=== PATIENT | male | born 1955 | race Caucasian/White ===

== ENCOUNTER 2019-01-31 11:35 | Inpatient (IN) | payer BC, OTHER ==
[2019-01-31] MEDS ORDERED: PIPERACILLIN/TAZOB 2.25 GM 2.25 GM in DEXTROSE 5%-WATER - 50 ML IVPB ONE (12:13)
[2019-01-31] MEDS ORDERED: VANCOMYCIN 1 GM in D5W (PRE-DOCKED) 1,000 MG/250 ML IVPB ONE (12:14)
--- NOTE | 2019-01-31 12:17 | PDOC ---
History of Present Illness - General Chief Complaint: Puncture Wound Stated Complaint: LT FOOT WOUND - History of Present Illness Initial Comments: The pt is a 63M w/ a history of HTN, DM, BLE neuropathy, ESRD on iHD (,,) who presents for evaluation of BLE infection/celluitis/necrosis for approx 1 month. The pt reports approximately 1 month of progressive R hallux and second toe blackening as well a similar area on the lateral aspect of his right foot. The area of most concern is his right second toe. He denies having IV abx for this before. He denies fevers/chills, chest pain, trouble breathing, increasing pain, drainage. He was told by Dr. Ragsdale to present today for IV abx and admission. 01/31/19 12:15 Past History - Past Medical History Allergies/Adverse Reactions: Allergies Allergy/AdvReac Type Severity Reaction Status Date / Time No Known Allergies Allergy Verified 01/31/19 11:43 Home Medications: Ambulatory Orders Aspirin [ASA -] 81 mg PO DAILY 01/31/19 Insulin (Levemir) [Levemir Vial] 20 unit SQ HS 01/31/19 Rosuvastatin Calcium [Crestor] 20 mg PO HS 01/31/19 COPD: No Diabetes: Yes Dialysis: Yes (,,THU) HTN: Yes - Surgical History Abdominal Surgery: (R UPPER ARM GRAFT) - Suicide/Smoking/Psychosocial Hx Smoking History: Never smoked Hx Alcohol Use: No Drug/Substance Use Hx: No Review of Systems - Review of Systems Able to Perform ROS?: Yes Comments:: GENERAL/CONSTITUTIONAL: No fever or chills. No weakness HEAD, EYES, EARS, NOSE AND THROAT: No change in vision. No change in hearing. No sore throat CARDIOVASCULAR: No chest pain or shortness of breath RESPIRATORY: Denies cough, hemoptysis GASTROINTESTINAL: No nausea, vomiting, diarrhea or constipation GENITOURINARY: Makes little urine MUSCULOSKELETAL: No joint or muscle swelling or pain. No neck or back pain NEUROLOGIC: No headache, vertigo, loss of consciousness, or change in strength/ sensation ENDOCRINE: No increased thirst. No abnormal weight change HEMATOLOGIC/LYMPHATIC: No anemia, easy bleeding, or history of blood clots ALLERGIC/IMMUNOLOGIC: No hives or skin allergy 01/31/19 12:15 Is the patient limited Cuban proficient: No *Physical Exam - Vital Signs Last Vital Signs Temp Pulse Resp BP Pulse Ox 97.5 F L 91 H 16 147/64 92 L 01/31/19 11:39 01/31/19 11:39 01/31/19 11:39 01/31/19 11:39 01/31/19 11:39 - Physical Exam Comments: GENERAL: Awake, alert, and oriented to person/place/time, in no acute distress HEAD: No signs of trauma, normocephalic, atraumatic EYES: PERRLA, EOMI, sclera anicteric, conjunctiva clear ENT: Hearing grossly normal, nares patent, oropharynx clear without exudates. Moist mucosa LUNGS: No distress, speaks in full sentences, clear to auscultation bilaterally HEART: Regular rate and rhythm, normal S1 and S2, no murmurs appreciated, peripheral pulses normal and equal bilaterally ABDOMEN: Soft, nontender, normoactive bowel sounds. No guarding, no rebound EXTREMITIES: Normal inspection, Normal range of motion, no edema. No clubbing or cyanosis NEUROLOGICAL: Cranial nerves II through XII grossly intact. Normal speech, ambulating, no focal sensorimotor deficits SKIN: R second toe necrosis, R hallux distal necrosis, left lateral foot distal necrosis. Surrounding erythema next to each area of necrosis w/o streaking 01/31/19 12:16 ED Treatment Course - LABORATORY CBC & Chemistry Diagram: 01/31/19 12:45 01/31/19 12:45 Medical Decision Making - Medical Decision Making The pt is a 63M w/ a history of HTN, DM, BLE neuropathy, ESRD on iHD (T,,) who presents for evaluation of BLE infection/celluitis/necrosis for approx 1 month. ED Course Labs and cultures sent Bernardo and Yohannes for cellulitis CXR ECG B/l foot XR to evaluate for SQ air Plan for admission for IV abx Consult order placed for Dr. Davidson Pt signed out to Dr. Ulrich 01/31/19 13:07 No leukocytosis Mild anemia, no indication for transfusion at this time Lytes unremarkable Elevated Cr, pt w/ known ESRD LFTs mildly elevated ESR wnl CRP elevated -XR pending to screen for osteo 01/31/19 15:20 *DC/Admit/Observation/Transfer Diagnosis at time of Disposition: Necrotic toes, Gangrene, ESRD (end stage renal disease) Cellulitis Qualifiers: Site of cellulitis: extremity Site of cellulitis of extremity: lower extremity Laterality: unspecified laterality Qualified Code(s): L03.119 - Cellulitis of unspecified part of limb - Discharge Dispostion Condition at time of disposition: Stable Decision to Admit order: Yes - Referrals - Patient Instructions - Post Discharge Activity
[2019-01-31] MEDS ORDERED: PIPERACILLIN/TAZOB 2.25 GM 2.25 GM/50 ML BAG IVPB ONE (12:30)
[2019-01-31] MEDS ORDERED: VANCOMYCIN 1 GRAM (PRE-DOCKED) 1,000 MG/250 ML BAG IVPB ONE (12:30)
[2019-01-31 13:13] LABS: BASO % 0.7 % (0-2.0); EOS % 0.1 % (0-4.5); HEMOGLOBIN 11.1 GM/dL (11.7-16.9); LYMPH % 4.7 % (8-40); MCH 26.2 pg (25.7-33.7); MCHC 30.9 g/dl (32.0-35.9); MEAN CELL VOLUME 84.8 fl (80-96); MEAN PLT VOLUME 10.7 fl (7.5-11.1); MONO % 4.8 % (3.8-10.2); NEUT % 89.7 % (42.8-82.8); PLATELET COUNT 240 K/MM3 (134-434); RBC 4.25 M/mm3 (4.00-5.60); WHITE BLOOD COUNT 9.9 K/mm3 (4.0-10.0)
[2019-01-31 13:37] LABS: BILIRUBIN,TOTAL 0.6 mg/dL (0.2-1); BLOOD UREA NITROGEN 71.9 mg/dL (7-18); CALCIUM 9.2 mg/dL (8.5-10.1); TOT PROT 7.5 g/dl (6.4-8.2)
[2019-01-31 13:40] LABS: CREATININE 8.7 mg/dL (0.55-1.3)
--- NOTE | 2019-01-31 14:17 | PDOC ---
Attending Attestation - Resident Resident Name: Jamaal Hinton - ED Attending Attestation I have performed the following: I have examined & evaluated the patient, The case was reviewed & discussed with the resident, I agree w/resident's findings & plan, Exceptions are as noted - HPI HPI: 01/31/19 14:11 Mr. Abel is a 63 yo M who presets to the ER due to toe gangrene The patient has a h/o HTN, DM, BLE neuropathy, ESRD on HD (T,,Sa) who presents for evaluation of BLE infection/celluitis/necrosis for approx 1 month. He has noted a progressive R hallux and second toe blackening as well a similar area on the lateral aspect of his right foot. he was seen by Dr. Ragsdale for this and told to come in for IV abx and admission. 01/31/19 12:15 - Physicial Exam PE: 01/31/19 14:17 GENERAL: Awake, alert, and oriented to person/place/time, in no acute distress HEAD: No signs of trauma EYES: PERRLA, EOMI, sclera anicteric, conjunctiva clear LUNGS: No distress, speaks in full sentences, clear to auscultation bilaterally HEART: Regular rate and rhythm, normal S1 and S2, no murmurs appreciated, peripheral pulses normal and equal bilaterally ABDOMEN: Soft, nontender EXTREMITIES: Normal inspection, Normal range of motion, no edema (please see below) NEUROLOGICAL: Cranial nerves II through XII grossly intact. Normal speech, ambulating, no focal sensorimotor deficits SKIN: R second toe necrosis, R hallux distal necrosis, left lateral foot distal necrosis. Surrounding erythema next to each area of necrosis w/o streaking - Medical Decision Making 01/31/19 14:18 63 yo M h/o ESRD on HD , DM presenting with necrosis of toes will do Labs Xray IV abx Admit 01/31/19 14:19 Laboratory Tests 01/31/19 01/31/19 01/31/19 12:45 12:45 12:45 WBC 9.9 Hgb 11.1 L Hct 36.0 Plt Count 240 Neutrophils % 89.7 H Sodium 135 L Chloride 98 Carbon Dioxide 23 BUN 71.9 H Creatinine 8.7 H* AST 107 H ALT 83 H Alkaline Phosphatase 200 H C-Reactive Protein 7.1 H Will admit to Dr Ragsdale's service Adi 01/31/19 16:04 EKG: NSR rate of 83 bpm, axis nml, intervals nml, no st elevation or depression , st depression v4-v6 clinical impression: gangrene, initial presentation
--- NOTE | 2019-01-31 14:41 | HP ---
Admitting History and Physical - Primary Care Physician PCP: Jonathan Ragsdale - Admission Chief Complaint: necrotic toes History of Present Illness: The patient has a h/o HTN, DM, BLE neuropathy, ESRD on HD (,,) who presents for evaluation of toe/necrosis and foul order for approx 1 month. He has noted a progressive R hallux and second toe blackening as well a similar area on the lateral aspect of his right foot. patent not sure when the black discoloration started and has decreased sensation in the toes and feet. he has no fever no other complaints he was seen by Dr. Ragsdale for this and told to come in for IV abx and admission. in ER he got iv abx History Source: Patient - Past Medical History Cardiovascular: Yes: HTN Renal/: Yes: Other (ESRD on HD) Endocrine: Yes: Diabetes Mellitus - Smoking History Smoking history: Never smoked - Alcohol/Substance Use Hx Alcohol Use: No Home Medications - Allergies Allergies/Adverse Reactions: Allergies Allergy/AdvReac Type Severity Reaction Status Date / Time No Known Allergies Allergy Verified 01/31/19 11:43 - Home Medications Home Medications: Ambulatory Orders Aspirin [ASA -] 81 mg PO DAILY 01/31/19 Insulin (Levemir) [Levemir Vial] 20 unit SQ HS 01/31/19 Rosuvastatin Calcium [Crestor] 20 mg PO HS 01/31/19 Review of Systems - Review of Systems Musculoskeletal: reports: Other (black foul smeeling necrotic toes) Physical Examination Vital Signs: Vital Signs Temperature 97.5 F L 01/31/19 11:39 Pulse Rate 91 H 01/31/19 11:39 Respiratory Rate 16 01/31/19 11:39 Blood Pressure 147/64 01/31/19 11:39 O2 Sat by Pulse Oximetry (%) 92 L 01/31/19 11:39 Constitutional: Yes: Calm Cardiovascular: Yes: Regular Rate and Rhythm, S1, S2 Respiratory: Yes: CTA Bilaterally Gastrointestinal: Yes: Normal Bowel Sounds, Soft Extremities: Yes: Cyanosis (right fifth toe and lateral border black left 2 toe necrotic and black) Neurological: Yes: Alert, Oriented, Other (decrasd sensation in feet) Labs: CBC, BMP 01/31/19 12:45 01/31/19 12:45 Problem List - Problems (1) Necrotic toes Assessment/Plan: vascular ,podiatry and ID consult iv abx Code(s): I96 - GANGRENE, NOT ELSEWHERE CLASSIFIED (2) Diabetes Assessment/Plan: diabetic diet [id number] endocrine sliding scale bgm Code(s): E11.9 - TYPE 2 DIABETES MELLITUS WITHOUT COMPLICATIONS Qualifiers: Diabetes mellitus type: type 2 (3) Hyperlipidemia Assessment/Plan: check lipid panel crestor Code(s): E78.5 - HYPERLIPIDEMIA, UNSPECIFIED
[2019-01-31] MEDS ORDERED: ACETAMINOPHEN 325 MG TABLET (FP) PO PRN (14:52)
--- NOTE | 2019-01-31 15:29 | CONSULT ---
Consult Consult Specialty:: Nephrology Reason for Consultation:: ESRD - History of Present Illness Chief Complaint: bilateral lower ext infection History of Present Illness: Pt is a 63 year old male with pmhx of HTN, DM, neuropathy, and ESRD (TTS) who presents to the ER with bilateral lower ext cellulitis. He has had these symptoms for the last month. He has gangrene of several toes. He is on HD and I was called to evaluate him. He last went to HD on Thursday. He denies shortness of breath or edema. He denies fevers or chills. He follows with Dr Hill. - History Source History Provided By: Patient - Past Medical History Cardio/Vascular: Yes: HTN Renal/: Yes: Renal Failure, Hemodialysis, Other (ESRD on HD) Heme/Onc: Yes: Anemia Endocrine: Yes: Diabetes Mellitus - Alcohol/Substance Use Hx Alcohol Use: No - Smoking History Smoking history: Never smoked Home Medications - Allergies Allergies/Adverse Reactions: Allergies Allergy/AdvReac Type Severity Reaction Status Date / Time No Known Allergies Allergy Verified 01/31/19 11:43 - Home Medications Home Medications: Ambulatory Orders Aspirin [ASA -] 81 mg PO DAILY 01/31/19 Insulin (Levemir) [Levemir Vial] 20 unit SQ HS 01/31/19 Rosuvastatin Calcium [Crestor] 20 mg PO HS 01/31/19 Family Disease History - Family Disease History Family History: Denies Review of Systems - Review of Systems Constitutional: reports: No Symptoms Eyes: reports: No Symptoms HENT: reports: No Symptoms Neck: reports: No Symptoms Cardiovascular: reports: No Symptoms Respiratory: reports: No Symptoms Gastrointestinal: reports: No Symptoms Genitourinary: reports: No Symptoms Musculoskeletal: reports: No Symptoms Integumentary: reports: Change in Color, Erythema, Wound Neurological: reports: No Symptoms Endocrine: reports: No Symptoms Hematology/Lymphatic: reports: No Symptoms Psychiatric: reports: No Symptoms Physical Exam Vital Signs: Vital Signs Temperature 97.5 F L 01/31/19 11:39 Pulse Rate 91 H 01/31/19 11:39 Respiratory Rate 16 01/31/19 11:39 Blood Pressure 147/64 01/31/19 11:39 O2 Sat by Pulse Oximetry (%) 92 L 01/31/19 11:39 Constitutional: Yes: Calm Eyes: Yes: Conjunctiva Clear HENT: Yes: Atraumatic Neck: Yes: Supple Cardiovascular: Yes: S1, S2 Respiratory: Yes: CTA Bilaterally Gastrointestinal: Yes: Normal Bowel Sounds, Soft Renal/: Yes: WNL Extremities: Yes: Other (bilateral lower ext cellulitis, gnagrene several toes left foot) Edema: No Integumentary: Yes: Erythema, Venous Stasis Changes Wound/Incision: Yes: Open to air Neurological: Yes: Oriented Psychiatric: Yes: Oriented Labs: CBC, BMP 01/31/19 12:45 01/31/19 12:45 Imaging - Results Chest X-ray: Report Reviewed Problem List - Problems (1) Cellulitis Code(s): L03.90 - CELLULITIS, UNSPECIFIED Qualifiers: Site of cellulitis: extremity Site of cellulitis of extremity: lower extremity Laterality: unspecified laterality Qualified Code(s): L03.119 - Cellulitis of unspecified part of limb (2) Diabetes Code(s): E11.9 - TYPE 2 DIABETES MELLITUS WITHOUT COMPLICATIONS Qualifiers: Diabetes mellitus type: type 2 (3) ESRD (end stage renal disease) Code(s): N18.6 - END STAGE RENAL DISEASE (4) Gangrene Code(s): I96 - GANGRENE, NOT ELSEWHERE CLASSIFIED (5) Hyperlipidemia Code(s): E78.5 - HYPERLIPIDEMIA, UNSPECIFIED Assessment/Plan Current Medications Generic Name Dose Route Start Last Admin Trade Name Freq PRN Reason Stop Dose Admin Acetaminophen 650 mg 01/31/19 14:52 Tylenol - PO Q6H PRN FEVER Heparin Sodium (Porcine) 5,000 unit 01/31/19 22:00 Heparin - SQ BID [facility] Insulin Aspart 1 vial 01/31/19 16:30 Novolog Vial Sliding Scale - SQ ACHS [facility] Protocol Insulin Detemir 15 units 01/31/19 22:00 Levemir Vial SQ HS [facility] Rosuvastatin Calcium 10 mg 01/31/19 22:00 Crestor - PO HS [facility] Impression 1. ESRD 2. DM 3. HLD 4. toe gangrene 5. anemia Plan - will arrange for HD tomorrow - renal diet - abx per primary team - podiatry and vascular eval
[2019-01-31] MEDS: INSULIN SLIDING SCALE (NOVOLOG) 1 VIAL SQ SCH ×2 (16:53→21:45)
[2019-01-31] MEDS ORDERED: SODIUM CHLORIDE 250 ML IV PRN (17:35)
--- NOTE | 2019-01-31 19:54 | PN ---
Progress Note (short form) - Note Progress Note: ID CONSULT DICTATED GANGRENE, FEET BILAT R/O SEPSIS ESRD AWAIT C/S EMPIRIC VANCOMYCIN/ ZOSYN, ADJUSTED FOR ESRD SURGICAL EVALUATION
[2019-01-31] MEDS: HEPARIN NA (PORCINE) 5,000 UNITS/ML 1ML VIAL SQ SCH (21:42)
[2019-01-31] MEDS: ROSUVASTATIN CA 10 MG TABLET (FP) PO SCH (21:42)
[2019-01-31] MEDS: INSULIN (LEVEMIR) 100 UNITS/ML UNITS SQ SCH (21:42)
[2019-02-01] MEDS ORDERED: DEXTROSE 5%-WATER - 50 ML IVPB ONE ×4 (01:29→23:43)
[2019-02-01] MEDS ORDERED: PIPERACILLIN/TAZOBACTAM 2.25 GM VIAL IVPB ONE ×4 (01:29→23:43)
[2019-02-01] MEDS: PIPERACILLIN/TAZOB 2.25 GM 2.25 GM in DEXTROSE 5%-WATER - 50 ML IVPB SCH ×3 (01:38→18:14)
[2019-02-01] MEDS: INSULIN SLIDING SCALE (NOVOLOG) 1 VIAL SQ SCH ×4 (06:11→21:45)
[2019-02-01 07:56] LABS: BASO % 0.9 % (0-2.0); HEMATOCRIT 33.1 % (35.4-49); HEMOGLOBIN 10.5 GM/dL (11.7-16.9); LYMPH % 6.1 % (8-40); MCH 26.5 pg (25.7-33.7); MCHC 31.6 g/dl (32.0-35.9); MEAN CELL VOLUME 83.7 fl (80-96); MEAN PLT VOLUME 10.1 fl (7.5-11.1); MONO % 5.2 % (3.8-10.2); NEUT % 87.8 % (42.8-82.8); PLATELET COUNT 228 K/MM3 (134-434); RBC 3.96 M/mm3 (4.00-5.60); RDW 19.4 % (11.9-15.9); WHITE BLOOD COUNT 9.4 K/mm3 (4.0-10.0)
[2019-02-01 07:58] LABS: INR 1.67 (0.83-1.09); PROTHROMBIN TIME (PATIENT) 19.8 SEC (9.7-13.0)
[2019-02-01 08:01] LABS: ACTIVATED PTT 31.3 SECONDS (25.2-36.5)
[2019-02-01 08:02] LABS: CHOLESTEROL 109 mg/dL (50-200); HDL CHOLESTEROL 23 mg/dL (40-60); TRIGLYCERIDES 109 mg/dL (0-150)
[2019-02-01 08:13] LABS: ALBUMIN 2.9 g/dl (3.4-5.0); BILIRUBIN,TOTAL 0.7 mg/dL (0.2-1); BLOOD UREA NITROGEN 83.9 mg/dL (7-18); CALCIUM 8.7 mg/dL (8.5-10.1); MAGNESIUM 2.7 mg/dL (1.8-2.4); N-TERMINAL BNP 107516.8 pg/ml (5-125); PHOSPHOROUS 8.6 mg/dL (2.5-4.9); POTASSIUM 4.7 mmol/L (3.5-5.1); TOT PROT 6.5 g/dl (6.4-8.2)
[2019-02-01 08:20] LABS: CREATININE 9.9 mg/dL (0.55-1.3)
--- NOTE | 2019-02-01 08:20 | PN ---
Progress Note, Physician Chief Complaint: AWAKE ALERT TROPONINS ELEVATED DENIES CHEST PAIN OR SOB EKG STAT ORDERED - Current Medication List Current Medications: Active Medications Acetaminophen (Tylenol -) 650 mg PO Q6H PRN PRN Reason: FEVER Heparin Sodium (Porcine) (Heparin -) 5,000 unit SQ BID MAISHA Last Admin: 01/31/19 21:42 Dose: 5,000 unit Sodium Chloride (Normal Saline -) 250 mls @ 3,000 mls/hr IV PRN PRN PRN Reason: Hypotension during Dialysis Stop: 02/01/19 17:35 Piperacillin Sod/Tazobactam (Sod 2.25 gm/ Dextrose) 50 mls @ 100 mls/hr IVPB Q8H-IV MAISHA; Protocol Last Admin: 02/01/19 01:38 Dose: 100 mls/hr Insulin Aspart (Novolog Vial Sliding Scale -) 1 vial SQ ACHS ON LICENSE OF [facility]; Protocol Last Admin: 02/01/19 06:11 Dose: Not Given Insulin Detemir (Levemir Vial) 15 units SQ HS ON LICENSE OF [facility] Last Admin: 01/31/19 21:42 Dose: 15 units Rosuvastatin Calcium (Crestor -) 10 mg PO HS ON LICENSE OF [facility] Last Admin: 01/31/19 21:42 Dose: 10 mg - Objective Vital Signs: Vital Signs Temperature 97.8 F 02/01/19 08:04 Pulse Rate 80 02/01/19 08:04 Respiratory Rate 20 02/01/19 08:04 Blood Pressure 130/69 02/01/19 08:04 O2 Sat by Pulse Oximetry (%) 99 01/31/19 21:00 Constitutional: Yes: Mild Distress Cardiovascular: Yes: Regular Rate and Rhythm Respiratory: Yes: WNL Gastrointestinal: Yes: Abdomen, Obese Genitourinary: Yes: Incontinence Musculoskeletal: Yes: Muscle Weakness Extremities: Yes: Deformity Edema: Yes Integumentary: Yes: Erythema, Pressure Ulcer, Rash, Skin Tear Wound/Incision: Yes: Open to air, Excoriated Neurological: Yes: Pre-Existing Deficit ...Motor Strength: LLE, RLE Labs: CBC, BMP 02/01/19 06:00 INR, PTT INR 1.67 (0.83-1.09) H 02/01/19 06:15 Problem List - Problems (1) Cellulitis Code(s): L03.90 - CELLULITIS, UNSPECIFIED Qualifiers: Site of cellulitis: extremity Site of cellulitis of extremity: lower extremity Laterality: unspecified laterality Qualified Code(s): L03.119 - Cellulitis of unspecified part of limb (2) Diabetes Code(s): E11.9 - TYPE 2 DIABETES MELLITUS WITHOUT COMPLICATIONS Qualifiers: Diabetes mellitus type: type 2 (3) ESRD (end stage renal disease) Code(s): N18.6 - END STAGE RENAL DISEASE (4) Gangrene Code(s): I96 - GANGRENE, NOT ELSEWHERE CLASSIFIED (5) Hyperlipidemia Code(s): E78.5 - HYPERLIPIDEMIA, UNSPECIFIED (6) Necrotic toes Code(s): I96 - GANGRENE, NOT ELSEWHERE CLASSIFIED Assessment/Plan IV ABX PER ID VASC SX AND PODIATRY EVAL MAY NEED AMPUTATION DISCUSSED COMPLIANCE WITH PATIENT PATIENT DOES NOT FOLLOW UP AND DOES NOT FOLLOW ADA/MEDS PSYCHIATRY EVAL
--- NOTE | 2019-02-01 09:22 | CONSULT ---
- Consultation REQUESTING PROVIDER: CONSULT REQUEST: We have been asked to surgically evaluate this patient for ( necrotic toes). PCP:Mojgan Hamilton HISTORY OF PRESENT ILLNESS: 63 y/o M w/ PMHx HTN, IDDM c/b BLE neuropathy, ESRD on HD (T,,) admitted for toe necrosis and foul order for approx 1 month. Pt is a poor historian. Reports he first noted his toes became necrotic approximately 1 month ago. Pt was seen by Dr Ragsdale and sent he was sent in for IV abx and admission. Pt denies h/o claudication/rest pain sxs, prior foot ulcerations, trauma, h/o recent tobacco use (quit smoking in 1978). Denies cp/sob, n/v/d, fever/chills. At baseline pt lives home with sister. Reports he is able to perform all his own ADLs. States prior to last month he ambulated unlimited amounts with no issues, reports walking 3 blocks to HD every session. PMHx: as above PSHx: B/L UE dialysis access (Dr Braden Pagan) Home Medications Medication Instructions Recorded Aspirin [ASA -] 81 mg PO DAILY 01/31/19 Insulin (Levemir) [Levemir Vial] 20 unit SQ HS 01/31/19 Rosuvastatin Calcium [Crestor] 20 mg PO HS 01/31/19 Allergies Allergy/AdvReac Type Severity Reaction Status Date / Time No Known Allergies Allergy Verified 01/31/19 11:43 REVIEW OF SYSTEMS: CONSTITUTIONAL: Absent: fever, chills CARDIOVASCULAR: Absent: chest pain, syncope RESPIRATORY: Absent: cough, shortness of breath GASTROINTESTINAL: Absent: abdominal pain PHYSICAL EXAM: GENERAL: Awake, alert, and fully oriented, in no acute distress. HEAD: Normal with no signs of trauma. LUNGS: Unlabored on RA. LOWER EXTREMITIES: Right foot with dry gangrene of 2nd toe, big toe with necrotic tip and purulent drainage medially, scant erythema of forefoot, trace edema. L lateral foot with approx 3x3cm area of dry gangrene. 5th digit edematous and discolored. Trace erythema of forefoot, trace edema of foot. L heel with 4x4 cm area of dry gangrene over heel, no erythema or drainage. Vascular: 2+ b/l fem, no pop pulses, no dp/pt appreciated Vital Signs Temperature 97.8 F 02/01/19 08:04 Pulse Rate 80 02/01/19 08:04 Respiratory Rate 20 02/01/19 08:04 Blood Pressure 130/69 02/01/19 08:04 O2 Sat by Pulse Oximetry (%) 99 01/31/19 21:00 Lab Results WBC 9.4 K/mm3 (4.0-10.0) 02/01/19 06:15 RBC 3.96 M/mm3 (4.00-5.60) L 02/01/19 06:15 Hgb 10.5 GM/dL (11.7-16.9) L 02/01/19 06:15 Hct 33.1 % (35.4-49) L 02/01/19 06:15 MCV 83.7 fl (80-96) 02/01/19 06:15 MCHC 31.6 g/dl (32.0-35.9) L 02/01/19 06:15 RDW 19.4 % (11.9-15.9) H 02/01/19 06:15 Plt Count 228 K/MM3 (134-434) 02/01/19 06:15 Sodium 137 mmol/L (136-145) 02/01/19 06:00 Potassium 4.7 mmol/L (3.5-5.1) 02/01/19 06:00 Chloride 97 mmol/L (98-107) L 02/01/19 06:00 Carbon Dioxide 22 mmol/L (21-32) 02/01/19 06:00 Anion Gap 18 MMOL/L (8-16) H 02/01/19 06:00 BUN 83.9 mg/dL (7-18) H 02/01/19 06:00 Creatinine 9.9 mg/dL (0.55-1.3) H* 02/01/19 06:00 Random Glucose 141 mg/dL (74-106) H 02/01/19 06:00 Calcium 8.7 mg/dL (8.5-10.1) 02/01/19 06:00 INR 1.67 (0.83-1.09) H 02/01/19 06:15 A/P: 63 y/o M w/ PMHx HTN, IDDM c/b BLE neuropathy, ESRD on HD (T,Th,Sa) admitted for toe necrosis and foul order for approx 1 month. Dry gangrene with + purulent drainage R foot, dry gangrene L foot Pt with likely PAD, however troponins >4. Will need CTA b/l le's once cleared from cardiac perspective. Discussed with pt likelihood of multiple toe amps once circulation has been evaluated due to extensive gangrene/infection, pt agreeable. Abx per primary team/ID Will follow d/w attending Dr Verde
[2019-02-01] MEDS: HEPARIN NA (PORCINE) 5,000 UNITS/ML 1ML VIAL SQ SCH ×2 (09:37→21:40)
--- NOTE | 2019-02-01 11:41 | CONS ---
INFECTIOUS DISEASE CONSULTATION DATE OF CONSULTATION: DATE OF DICTATION: 02/01/2019 HISTORY: The patient is a 63-year-old male who is evaluated for gangrene of the feet bilaterally. The patient reports that he had developed discoloration of his toes approximately 1 month ago. He developed progressively worsening cyanosis and necrosis of toes on the right foot as well as the lateral aspect of the left foot. He presented to his provider who referred him for admission. In the emergency room, he was noted to have dry gangrene of the right 2nd toe as well as part of the right great toe. In addition, he had necrosis involving the lateral aspect of the left foot. Cultures were obtained, and he was empirically treated with vancomycin and Zosyn. Patient complains of some mild discomfort, however, no severe pain. He denies any purulent drainage. No associated fever or chills. He denies any prior history of serious soft tissue infection requiring hospitalization, infected diabetic foot ulcers, or osteomyelitis. He has received his care at other hospitals. No previous [facility] admission. PAST MEDICAL HISTORY: Positive for end-stage renal disease on hemodialysis, diabetes mellitus, hypertension, peripheral neuropathy. PAST SURGICAL HISTORY: Status post AV graft right upper extremity, history of a left upper extremity AV graft, which was complicated by bleeding. ALLERGIES: No known allergies. MEDICATIONS: Include aspirin, Levemir, Crestor. SOCIAL HISTORY: He is retired. He lives in the community with his significant other. He was a former healthcare coordinator. No acute tobacco or alcohol use. SYSTEMS REVIEW: Neurologic: No loss of consciousness, seizure activity, focal weakness. Cardiac: Negative chest pain or palpitations. Respiratory: Negative cough or sputum production. Gastrointestinal: Negative vomiting or diarrhea. Genitourinary: End-stage renal disease on hemodialysis. LABORATORY DATA: White count 9.9, hematocrit 36.0, platelet count 240, creatinine 8.7, total bilirubin 0.6, alkaline phosphatase 200, AST 107, ESR 59, C-reactive protein 7.1. X-rays are pending. PHYSICAL EXAMINATION: General: He is awake and alert. He is not acutely toxic appearing. Vital Signs: Temperature 97.5, blood pressure 147/64, pulse 91 and regular, respirations 16 per minute. HEENT: Sclerae anicteric. Heart: Sounds S1, S2. Lungs: Clear. Abdomen: Soft and nontender. Extremities: There is an AV graft present in the right upper extremity. There is an ulceration present over a previous AV graft in the left upper extremity. No purulent drainage or erythema. Examination of the right foot, there is dry gangrene involving the right 2nd toe as well as the right great toe. There is no purulent drainage. There is erythema extending to the dorsum of the foot. No tenderness elicited. Examination of the left foot, there is necrosis present left 5th toe and lateral aspect of the left foot. There is erythema extending along the lateral aspect of the left foot. No purulent drainage. IMPRESSION: 1. Gangrene feet bilateral. 2. Rule out sepsis secondary to skin source. 3. End-stage renal disease on hemodialysis. 4. Diabetes mellitus. PLAN: Await cultures. Empiric antibiotic coverage with vancomycin and Zosyn adjusted for end-stage renal disease. Surgical evaluation. We will follow. Thank you for the kind referral. LILLIAN DIEGO M.D. [id number]
--- NOTE | 2019-02-01 13:00 | PN ---
Progress Note, Physician History of Present Illness: AWAKE, ALERT C/O BILATERAL FOOT PAIN NO C/O F/C WBC WNL C/S PENDING ELEVATED LFTS NOTED - Current Medication List Current Medications: Active Medications Acetaminophen (Tylenol -) 650 mg PO Q6H PRN PRN Reason: FEVER Heparin Sodium (Porcine) (Heparin -) 5,000 unit SQ BID [facility] Last Admin: 02/01/19 09:37 Dose: 5,000 unit Sodium Chloride (Normal Saline -) 250 mls @ 3,000 mls/hr IV PRN PRN PRN Reason: Hypotension during Dialysis Stop: 02/01/19 17:35 Piperacillin Sod/Tazobactam (Sod 2.25 gm/ Dextrose) 50 mls @ 100 mls/hr IVPB Q8H-IV [facility]; Protocol Last Admin: 02/01/19 09:37 Dose: 100 mls/hr Insulin Aspart (Novolog Vial Sliding Scale -) 1 vial SQ ACHS [facility]; Protocol Last Admin: 02/01/19 06:11 Dose: Not Given Insulin Detemir (Levemir Vial) 15 units SQ HS [facility] Last Admin: 01/31/19 21:42 Dose: 15 units Rosuvastatin Calcium (Crestor -) 10 mg PO HS [facility] Last Admin: 01/31/19 21:42 Dose: 10 mg - Objective Vital Signs: Vital Signs Temperature 98.4 F 02/01/19 11:15 Pulse Rate 93 H 02/01/19 12:20 Respiratory Rate 18 02/01/19 12:20 Blood Pressure 147/100 02/01/19 12:20 O2 Sat by Pulse Oximetry (%) 99 01/31/19 21:00 Constitutional: Yes: No Distress Eyes: Yes: Conjunctiva Clear Cardiovascular: Yes: Regular Rate and Rhythm, S1, S2 Respiratory: Yes: CTA Bilaterally Gastrointestinal: Yes: Normal Bowel Sounds, Soft. No: Tenderness Extremities: Yes: Other (+ DRY GANGRENE R 1/2 TOES, LATERAL L FOOT; CYANOSIS L 5TH TOE) Labs: CBC, BMP 02/01/19 06:15 02/01/19 06:00 INR, PTT INR 1.67 (0.83-1.09) H 02/01/19 06:15 Assessment/Plan GANGRENE, FEET BILATERALLY ESRD ELEVATED LFTS AWAIT C/S SURGICAL FOLLOW UP CONTINUE ZOSYN REDOSE VANCOMYCIN ? GI EVAL RE LFTS
[2019-02-01] MEDS ORDERED: VANCOMYCIN 1 GRAM (PRE-DOCKED) 1,000 MG/250 ML BAG IVPB ONE (13:01)
--- NOTE | 2019-02-01 15:49 | PN ---
Progress Note, Physician History of Present Illness: Pt seen and examined at bedside. He is awake and alert. He is tolerating HD. - Current Medication List Current Medications: Active Medications Acetaminophen (Tylenol -) 650 mg PO Q6H PRN PRN Reason: FEVER Heparin Sodium (Porcine) (Heparin -) 5,000 unit SQ BID [facility] Last Admin: 02/01/19 09:37 Dose: 5,000 unit Sodium Chloride (Normal Saline -) 250 mls @ 3,000 mls/hr IV PRN PRN PRN Reason: Hypotension during Dialysis Stop: 02/01/19 17:35 Piperacillin Sod/Tazobactam (Sod 2.25 gm/ Dextrose) 50 mls @ 100 mls/hr IVPB Q8H-IV [facility]; Protocol Last Admin: 02/01/19 09:37 Dose: 100 mls/hr Insulin Aspart (Novolog Vial Sliding Scale -) 1 vial SQ ACHS [facility]; Protocol Last Admin: 02/01/19 14:24 Dose: Not Given Insulin Detemir (Levemir Vial) 15 units SQ HS [facility] Last Admin: 01/31/19 21:42 Dose: 15 units Rosuvastatin Calcium (Crestor -) 10 mg PO HS [facility] Last Admin: 01/31/19 21:42 Dose: 10 mg - Objective Vital Signs: Vital Signs Temperature 98.4 F 02/01/19 11:15 Pulse Rate 80 02/01/19 14:20 Respiratory Rate 18 02/01/19 14:20 Blood Pressure 120/82 02/01/19 14:20 O2 Sat by Pulse Oximetry (%) 99 02/01/19 09:00 Constitutional: Yes: Calm Eyes: Yes: Conjunctiva Clear HENT: Yes: Atraumatic Neck: Yes: Supple Cardiovascular: Yes: S1, S2 Respiratory: Yes: CTA Bilaterally Gastrointestinal: Yes: Normal Bowel Sounds, Soft Genitourinary: Yes: WNL Musculoskeletal: Yes: WNL Edema: No Wound/Incision: Yes: Open to air Neurological: Yes: Oriented Psychiatric: Yes: Oriented Labs: CBC, BMP 02/01/19 06:15 02/01/19 06:00 INR, PTT INR 1.67 (0.83-1.09) H 02/01/19 06:15 Problem List - Problems (1) Cellulitis Code(s): L03.90 - CELLULITIS, UNSPECIFIED Qualifiers: Site of cellulitis: extremity Site of cellulitis of extremity: lower extremity Laterality: unspecified laterality Qualified Code(s): L03.119 - Cellulitis of unspecified part of limb (2) Diabetes Code(s): E11.9 - TYPE 2 DIABETES MELLITUS WITHOUT COMPLICATIONS Qualifiers: Diabetes mellitus type: type 2 (3) ESRD (end stage renal disease) Code(s): N18.6 - END STAGE RENAL DISEASE (4) Gangrene Code(s): I96 - GANGRENE, NOT ELSEWHERE CLASSIFIED (5) Hyperlipidemia Code(s): E78.5 - HYPERLIPIDEMIA, UNSPECIFIED Assessment/Plan Current Medications Generic Name Dose Route Start Last Admin Trade Name Freq PRN Reason Stop Dose Admin Acetaminophen 650 mg 01/31/19 14:52 Tylenol - PO Q6H PRN FEVER Heparin Sodium (Porcine) 5,000 unit 01/31/19 22:00 02/01/19 09:37 Heparin - SQ 5,000 unit BID [facility] Administration Sodium Chloride 250 mls @ 3,000 mls/hr 01/31/19 17:35 Normal Saline - IV 02/01/19 17:35 PRN PRN Hypotension during Dialysis Piperacillin Sod/Tazobactam 50 mls @ 100 mls/hr 02/01/19 02:00 02/01/19 09:37 Sod 2.25 gm/ Dextrose IVPB 100 mls/hr Q8H-IV [facility] Administration Protocol Insulin Aspart 1 vial 01/31/19 16:30 02/01/19 14:24 Novolog Vial Sliding Scale - SQ Not Given ACHS [facility] Protocol Insulin Detemir 15 units 01/31/19 22:00 01/31/19 21:42 Levemir Vial SQ 15 units HS [facility] Administration Rosuvastatin Calcium 10 mg 01/31/19 22:00 01/31/19 21:42 Crestor - PO 10 mg HS [facility] Administration Impression 1. ESRD 2. DM 3. HLD 4. toe gangrene 5. anemia Plan - HD today, pt is tolerating - podiatry and vascular follow up - cont renal diet - cont wound care - bp is stable
--- NOTE | 2019-02-01 15:51 | EKG ---
Test Reason : Blood Pressure : / mmHG Vent. Rate : 078 BPM Atrial Rate : 078 BPM P-R Int : 180 ms QRS Dur : 108 ms QT Int : 436 ms P-R-T Axes : 079 073 192 degrees QTc Int : 497 ms SINUS RHYTHM WITH OCCASIONAL PREMATURE VENTRICULAR COMPLEXES INFERIOR INFARCT (CITED ON OR BEFORE 31-JAN-2019) ABNORMAL ECG WHEN COMPARED WITH ECG OF 31-JAN-2019 15:39, PREMATURE VENTRICULAR COMPLEXES ARE NOW PRESENT Confirmed by MD ECHO, ZOILA ([id number]) on 02/01/2019 3:51:01 PM Referred By: Gill HECTOR Confirmed By:ZOILA DODGE MD
--- NOTE | 2019-02-01 16:15 | EKG ---
Test Reason : Blood Pressure : / mmHG Vent. Rate : 083 BPM Atrial Rate : 083 BPM P-R Int : 136 ms QRS Dur : 108 ms QT Int : 420 ms P-R-T Axes : 018 066 188 degrees QTc Int : 493 ms NORMAL SINUS RHYTHM POSSIBLE LEFT ATRIAL ENLARGEMENT INFERIOR INFARCT , AGE UNDETERMINED ABNORMAL ECG NO PREVIOUS ECGS AVAILABLE Confirmed by MD ECHO, ZOILA ([id number]) on 02/01/2019 4:15:40 PM Referred By: Confirmed By:ZOILA DODGE MD
[2019-02-01] MEDS ORDERED: PT OWN MED DRAWER 7, Y5N ONE (18:32)
--- NOTE | 2019-02-01 18:36 | CON.PSY ---
Psychiatry Consult Chief Complaint: 63 Ramona old male with ESRD andc other medical conditions seen for Psych eval? competency. Patient gets Dialysis anmd been compl;iant. Patierntv apparantly refused MRI< closed one.. - Previous Psychiatric Treatment Outpatient: None Inpatient: None - Previous Substance Abuse Treatment Outpatient: None Inpatient: None - Current Medications Current Medications: Active Medications Acetaminophen (Tylenol -) 650 mg PO Q6H PRN PRN Reason: FEVER Heparin Sodium (Porcine) (Heparin -) 5,000 unit SQ BID [facility] Last Admin: 02/01/19 09:37 Dose: 5,000 unit Sodium Chloride (Normal Saline -) 250 mls @ 3,000 mls/hr IV PRN PRN PRN Reason: Hypotension during Dialysis Stop: 02/01/19 17:35 Piperacillin Sod/Tazobactam (Sod 2.25 gm/ Dextrose) 50 mls @ 100 mls/hr IVPB Q8H-IV [facility]; Protocol Last Admin: 02/01/19 18:14 Dose: 100 mls/hr Insulin Aspart (Novolog Vial Sliding Scale -) 1 vial SQ ACHS [facility]; Protocol Last Admin: 02/01/19 16:38 Dose: Not Given Insulin Detemir (Levemir Vial) 15 units SQ HS [facility] Last Admin: 01/31/19 21:42 Dose: 15 units Rosuvastatin Calcium (Crestor -) 10 mg PO HS [facility] Last Admin: 01/31/19 21:42 Dose: 10 mg - Allergies Allergies: Allergies Allergy/AdvReac Type Severity Reaction Status Date / Time No Known Allergies Allergy Verified 01/31/19 11:43 - Current Living Status Usual Living Arrangement: Alone - Current Mental Status Evaluation Appearance: Well Groomed Attitude: Cooperative - Affect Affect: Constrictive Appropriateness: Appropriate to Content - Mood Mood: Euthymic - Speech/Language Expressive: Coherent, Perseverating - Psychomotor Activity Psychomotor Activity: Slowed - Thought Process Thought Process: Intact - Thought Content Hallucinations: Absent Delusions: Absent - Self Perception Self Perception: No Impairment - Cognition Attention: Alert Orientation: Time Memory, Short Term: 3/3 Memory, Remote with Promptin/3 - Concentration Serial Sevens Intact: Yes Simple Calculations Intact: Yes - Abstraction Proverb Interpretation: Intact Judgement: Intact - Insight Insight: Intact - Suicidal Ideation Suicidal Ideation: No - Homicidal Ideation Homicidal Ideation: No Assessment/Plan 12) No acute Mental illness. 2) Patient has the Mental; capacity to Make decisions at this time.
--- NOTE | 2019-02-01 20:17 | CONSULT ---
Consult Consult Specialty:: Podiatry Reason for Consultation:: Gangarene b/l feet - History of Present Illness Chief Complaint: Gangarene B/L feet - History Source History Provided By: Patient, Medical Record - Past Medical History Cardio/Vascular: Yes: HTN Renal/: Yes: Renal Failure, Hemodialysis, Other (ESRD on HD) Endocrine: Yes: Diabetes Mellitus - Alcohol/Substance Use Hx Alcohol Use: No - Smoking History Smoking history: Never smoked Have you smoked in the past 12 months: No - Social History Usual Living Arrangement: Alone Home Medications - Allergies Allergies/Adverse Reactions: Allergies Allergy/AdvReac Type Severity Reaction Status Date / Time No Known Allergies Allergy Verified 01/31/19 11:43 - Home Medications Home Medications: Ambulatory Orders Aspirin [ASA -] 81 mg PO DAILY 01/31/19 Insulin (Levemir) [Levemir Vial] 20 unit SQ HS 01/31/19 Rosuvastatin Calcium [Crestor] 20 mg PO HS 01/31/19 Physical Exam Vital Signs: Vital Signs Temperature 98.4 F 02/01/19 11:15 Pulse Rate 88 02/01/19 15:48 Respiratory Rate 18 02/01/19 15:48 Blood Pressure 150/82 02/01/19 15:48 O2 Sat by Pulse Oximetry (%) 99 02/01/19 09:00 Extremities: Yes: Other (+gangarene lateral left foot with schemic blue 5th toe , +gangarene hallux and 2nd toe right, +mal odor left, +dry gangarene right, + pvd) Labs: CBC, BMP 02/01/19 06:15 02/01/19 06:00 Assessment/Plan gangarene pvd DM Read and appreciated vascular note. Awaiting vascular follow up and recommendations. Will debride necrotic tissue and or amputated gangrenous toes once cleared or re-vascularized. HGBA1c, ESR, CRP ordered. Refused MRI according to patient. Betadine dressing to wounds on feet to maintain dry status. Will follow. ID on case.
[2019-02-01] MEDS: ROSUVASTATIN CA 10 MG TABLET (FP) PO SCH (21:40)
[2019-02-01] MEDS: INSULIN (LEVEMIR) 100 UNITS/ML UNITS SQ SCH (21:40)
[2019-02-02] MEDS: PIPERACILLIN/TAZOB 2.25 GM 2.25 GM in DEXTROSE 5%-WATER - 50 ML IVPB SCH ×3 (02:31→17:07)
[2019-02-02] MEDS: INSULIN SLIDING SCALE (NOVOLOG) 1 VIAL SQ SCH ×4 (06:26→22:51)
[2019-02-02] MEDS ORDERED: SODIUM CHLORIDE 250 ML IV PRN (07:30)
--- NOTE | 2019-02-02 08:44 | PN ---
Progress Note, Physician Chief Complaint: AWAKE ALERT AWAITING TOE AMPUTATION SURGERY THURSDAY - Current Medication List Current Medications: Active Medications Acetaminophen (Tylenol -) 650 mg PO Q6H PRN PRN Reason: FEVER Heparin Sodium (Porcine) (Heparin -) 5,000 unit SQ BID [facility] Last Admin: 02/01/19 21:40 Dose: 5,000 unit Sodium Chloride (Normal Saline -) 250 mls @ 3,000 mls/hr IV PRN PRN PRN Reason: Hypotension during Dialysis Stop: 02/01/19 17:35 Piperacillin Sod/Tazobactam (Sod 2.25 gm/ Dextrose) 50 mls @ 100 mls/hr IVPB Q8H-IV [facility]; Protocol Last Admin: 02/02/19 02:31 Dose: 100 mls/hr Insulin Aspart (Novolog Vial Sliding Scale -) 1 vial SQ ACHS [facility]; Protocol Last Admin: 02/02/19 06:26 Dose: Not Given Insulin Detemir (Levemir Vial) 15 units SQ HS [facility] Last Admin: 02/01/19 21:40 Dose: 15 units Rosuvastatin Calcium (Crestor -) 10 mg PO HS [facility] Last Admin: 02/01/19 21:40 Dose: 10 mg - Objective Vital Signs: Vital Signs Temperature 97.4 F L 02/02/19 06:00 Pulse Rate 84 02/02/19 06:00 Respiratory Rate 20 02/02/19 06:00 Blood Pressure 131/73 02/02/19 06:00 O2 Sat by Pulse Oximetry (%) 98 02/01/19 21:00 Constitutional: Yes: Mild Distress Cardiovascular: Yes: Regular Rate and Rhythm Respiratory: Yes: WNL Gastrointestinal: Yes: WNL Genitourinary: Yes: Other Extremities: Yes: Deformity Integumentary: Yes: Pressure Ulcer, Other (GANGRENOUS TOES B/L FEET) Neurological: Yes: Numbness, Paresthesia, Unsteady Gait, Weakness ...Motor Strength: LLE, RLE Psychiatric: Yes: Other Labs: CBC, BMP 02/01/19 06:15 02/01/19 06:00 INR, PTT INR 1.67 (0.83-1.09) H 02/01/19 06:15 Problem List - Problems (1) Cellulitis Code(s): L03.90 - CELLULITIS, UNSPECIFIED Qualifiers: Site of cellulitis: extremity Site of cellulitis of extremity: lower extremity Laterality: unspecified laterality Qualified Code(s): L03.119 - Cellulitis of unspecified part of limb (2) Diabetes Code(s): E11.9 - TYPE 2 DIABETES MELLITUS WITHOUT COMPLICATIONS Qualifiers: Diabetes mellitus type: type 2 (3) ESRD (end stage renal disease) Code(s): N18.6 - END STAGE RENAL DISEASE (4) Gangrene Code(s): I96 - GANGRENE, NOT ELSEWHERE CLASSIFIED (5) Hyperlipidemia Code(s): E78.5 - HYPERLIPIDEMIA, UNSPECIFIED (6) Necrotic toes Code(s): I96 - GANGRENE, NOT ELSEWHERE CLASSIFIED Assessment/Plan MEDICALLY CLEARED FOR AMPUTATION OF TOES FROM NECROTIC TOES HD PER RENAL DM CONTROL D/W PATIENT PSYCH MARIE COTTO
[2019-02-02] MEDS ORDERED: PT OWN MED DRAWER 7, Y5N ONE (10:16)
[2019-02-02] MEDS ORDERED: PIPERACILLIN/TAZOBACTAM 2.25 GM VIAL IVPB ONE ×2 (10:16→17:03)
[2019-02-02] MEDS ORDERED: DEXTROSE 5%-WATER - 50 ML IVPB ONE ×2 (10:17→17:03)
[2019-02-02] MEDS: HEPARIN NA (PORCINE) 5,000 UNITS/ML 1ML VIAL SQ SCH ×2 (10:23→22:51)
[2019-02-02] MEDS: SERTRALINE HCL 25 MG TABLET (FP) PO SCH (10:24)
--- NOTE | 2019-02-02 10:58 | PN ---
Progress Note, Physician History of Present Illness: AWAKE, ALERT NO C/O FOOT PAIN NO C/O F/C WBC WNL C/S PENDING ELEVATED LFTS NOTED - Current Medication List Current Medications: Active Medications Acetaminophen (Tylenol -) 650 mg PO Q6H PRN PRN Reason: FEVER Heparin Sodium (Porcine) (Heparin -) 5,000 unit SQ BID [facility] Last Admin: 02/02/19 10:23 Dose: 5,000 unit Sodium Chloride (Normal Saline -) 250 mls @ 3,000 mls/hr IV PRN PRN PRN Reason: Hypotension during Dialysis Stop: 02/01/19 17:35 Piperacillin Sod/Tazobactam (Sod 2.25 gm/ Dextrose) 50 mls @ 100 mls/hr IVPB Q8H-IV [facility]; Protocol Last Admin: 02/02/19 10:23 Dose: 100 mls/hr Insulin Aspart (Novolog Vial Sliding Scale -) 1 vial SQ ACHS [facility]; Protocol Last Admin: 02/02/19 06:26 Dose: Not Given Insulin Detemir (Levemir Vial) 15 units SQ HS [facility] Last Admin: 02/01/19 21:40 Dose: 15 units Rosuvastatin Calcium (Crestor -) 10 mg PO HS [facility] Last Admin: 02/01/19 21:40 Dose: 10 mg Sertraline HCl (Zoloft -) 25 mg PO DAILY [facility] Last Admin: 02/02/19 10:24 Dose: Not Given - Objective Vital Signs: Vital Signs Temperature 97.4 F L 02/02/19 06:00 Pulse Rate 84 02/02/19 06:00 Respiratory Rate 20 02/02/19 06:00 Blood Pressure 131/73 02/02/19 06:00 O2 Sat by Pulse Oximetry (%) 98 02/01/19 21:00 Constitutional: Yes: No Distress Cardiovascular: Yes: Regular Rate and Rhythm, S1, S2 Respiratory: Yes: CTA Bilaterally Gastrointestinal: Yes: Normal Bowel Sounds, Soft. No: Tenderness Extremities: Yes: Other (DRY GANGRENE R 1/2 TOES; ERYTHEMA RESOLVED; + NECROTIC ULCER LATERAL L FOOT, DECREASED ERYTHEMA) Labs: CBC, BMP 02/01/19 06:15 02/01/19 06:00 INR, PTT INR 1.67 (0.83-1.09) H 02/01/19 06:15 Assessment/Plan GANGRENE, FEET BILATERALLY ESRD ELEVATED LFTS AWAIT C/S SURGICAL FOLLOW UP CONTINUE ZOSYN VANCOMYCIN THERAPUTIC ? GI EVAL RE LFTS
--- NOTE | 2019-02-02 12:56 | PN ---
Progress Note (short form) - Note Progress Note: FUV b/l feet. +gangarene b/l feet toes 1&2 right and lateral foot left and dusky 5th toe, [id number]=3.3 gangarene pvd dm Awaiting vascular work up will debride once cleared from vascular. Medicine has cleared patient. Will follow. continue betadine dressings. Endocrine consult Dr. Botello.
--- NOTE | 2019-02-02 13:12 | PN ---
Progress Note, Physician Chief Complaint: Pt seen and examined at bedside. He is awake and alert. He denies shortness of breath. - Current Medication List Current Medications: Active Medications Acetaminophen (Tylenol -) 650 mg PO Q6H PRN PRN Reason: FEVER Heparin Sodium (Porcine) (Heparin -) 5,000 unit SQ BID [facility] Last Admin: 02/02/19 10:23 Dose: 5,000 unit Sodium Chloride (Normal Saline -) 250 mls @ 3,000 mls/hr IV PRN PRN PRN Reason: Hypotension during Dialysis Stop: 02/01/19 17:35 Piperacillin Sod/Tazobactam (Sod 2.25 gm/ Dextrose) 50 mls @ 100 mls/hr IVPB Q8H-IV [facility]; Protocol Last Admin: 02/02/19 10:23 Dose: 100 mls/hr Insulin Aspart (Novolog Vial Sliding Scale -) 1 vial SQ ACHS [facility]; Protocol Last Admin: 02/02/19 13:00 Dose: 4 units Insulin Detemir (Levemir Vial) 15 units SQ HS [facility] Last Admin: 02/01/19 21:40 Dose: 15 units Rosuvastatin Calcium (Crestor -) 10 mg PO HS [facility] Last Admin: 02/01/19 21:40 Dose: 10 mg Sertraline HCl (Zoloft -) 25 mg PO DAILY [facility] Last Admin: 02/02/19 10:24 Dose: Not Given - Objective Vital Signs: Vital Signs Temperature 97.4 F L 02/02/19 06:00 Pulse Rate 84 02/02/19 06:00 Respiratory Rate 20 02/02/19 06:00 Blood Pressure 131/73 02/02/19 06:00 O2 Sat by Pulse Oximetry (%) 98 02/01/19 21:00 Constitutional: Yes: Calm Eyes: Yes: Conjunctiva Clear HENT: Yes: Atraumatic Neck: Yes: Supple Cardiovascular: Yes: S1, S2 Respiratory: Yes: CTA Bilaterally Gastrointestinal: Yes: Soft Genitourinary: Yes: WNL Musculoskeletal: Yes: WNL Edema: No Wound/Incision: Yes: Dressing Dry and Intact Neurological: Yes: Oriented Labs: CBC, BMP 02/01/19 06:15 02/01/19 06:00 INR, PTT INR 1.67 (0.83-1.09) H 02/01/19 06:15 Problem List - Problems (1) Cellulitis Code(s): L03.90 - CELLULITIS, UNSPECIFIED Qualifiers: Site of cellulitis: extremity Site of cellulitis of extremity: lower extremity Laterality: unspecified laterality Qualified Code(s): L03.119 - Cellulitis of unspecified part of limb (2) Diabetes Code(s): E11.9 - TYPE 2 DIABETES MELLITUS WITHOUT COMPLICATIONS Qualifiers: Diabetes mellitus type: type 2 (3) ESRD (end stage renal disease) Code(s): N18.6 - END STAGE RENAL DISEASE (4) Gangrene Code(s): I96 - GANGRENE, NOT ELSEWHERE CLASSIFIED (5) Hyperlipidemia Code(s): E78.5 - HYPERLIPIDEMIA, UNSPECIFIED Assessment/Plan Current Medications Generic Name Dose Route Start Last Admin Trade Name Freq PRN Reason Stop Dose Admin Acetaminophen 650 mg 01/31/19 14:52 Tylenol - PO Q6H PRN FEVER Heparin Sodium (Porcine) 5,000 unit 01/31/19 22:00 02/02/19 10:23 Heparin - SQ 5,000 unit BID [facility] Administration Sodium Chloride 250 mls @ 3,000 mls/hr 01/31/19 17:35 Normal Saline - IV 02/01/19 17:35 PRN PRN Hypotension during Dialysis Piperacillin Sod/Tazobactam 50 mls @ 100 mls/hr 02/01/19 02:00 02/02/19 10:23 Sod 2.25 gm/ Dextrose IVPB 100 mls/hr Q8H-IV [facility] Administration Protocol Insulin Aspart 1 vial 01/31/19 16:30 02/02/19 13:00 Novolog Vial Sliding Scale - SQ 4 units ACHS [facility] Administration Protocol Insulin Detemir 15 units 01/31/19 22:00 02/01/19 21:40 Levemir Vial SQ 15 units HS [facility] Administration Rosuvastatin Calcium 10 mg 01/31/19 22:00 02/01/19 21:40 Crestor - PO 10 mg HS [facility] Administration Sertraline HCl 25 mg 02/02/19 10:00 02/02/19 10:24 Zoloft - PO Not Given DAILY [facility] Impression 1. ESRD 2. DM 3. HLD 4. toe gangrene 5. anemia Plan - will arrange for HD tomorrow - check labs with HD - check hg - renal diet - cont wound care - possible or on Huseyin
--- NOTE | 2019-02-02 19:06 | PN ---
Progress Note (short form) - Note Progress Note: VAscular Surgery Pt seen and examined GAngrene of right 1st and 2nd toes. GAngrene of left 5th toe and heel. CTA ordrered for am. Will probably need angiogram prior to podiatry intervention Brayan Verde DO
[2019-02-02] MEDS: ROSUVASTATIN CA 10 MG TABLET (FP) PO SCH (22:51)
[2019-02-02] MEDS: INSULIN (LEVEMIR) 100 UNITS/ML UNITS SQ SCH (22:52)
[2019-02-03] MEDS ORDERED: DEXTROSE 5%-WATER - 50 ML IVPB ONE ×3 (01:49→18:24)
[2019-02-03] MEDS ORDERED: PIPERACILLIN/TAZOBACTAM 2.25 GM VIAL IVPB ONE ×3 (01:49→18:23)
[2019-02-03] MEDS: PIPERACILLIN/TAZOB 2.25 GM 2.25 GM in DEXTROSE 5%-WATER - 50 ML IVPB SCH ×3 (02:00→17:33)
[2019-02-03] MEDS: INSULIN SLIDING SCALE (NOVOLOG) 1 VIAL SQ SCH ×4 (06:16→22:27)
[2019-02-03] MEDS ORDERED: EPOETIN ALFA 3,000 UNIT/1 ML ML IVPUSH ONE (09:00)
[2019-02-03] MEDS: HEPARIN NA (PORCINE) 5,000 UNITS/ML 1ML VIAL SQ SCH ×2 (10:10→22:27)
[2019-02-03] MEDS: SERTRALINE HCL 25 MG TABLET (FP) PO SCH (10:10)
--- NOTE | 2019-02-03 11:36 | EKG ---
Test Reason : Blood Pressure : / mmHG Vent. Rate : 086 BPM Atrial Rate : 086 BPM P-R Int : 136 ms QRS Dur : 110 ms QT Int : 420 ms P-R-T Axes : 019 054 172 degrees QTc Int : 502 ms NORMAL SINUS RHYTHM POSSIBLE LEFT ATRIAL ENLARGEMENT INFERIOR INFARCT (CITED ON OR BEFORE 31-JAN-2019) PROLONGED QT ABNORMAL ECG WHEN COMPARED WITH ECG OF 01-FEB-2019 10:05, PREMATURE VENTRICULAR COMPLEXES ARE NO LONGER PRESENT Confirmed by ROBBY BROWN MD ([id number]) on 02/03/2019 11:36:01 AM Referred By: BISHNU ONTIVEROS Confirmed By:ROBBY BROWN MD
[2019-02-03 11:40] LABS: BASO % 0.8 % (0-2.0); EOS % 0.3 % (0-4.5); HEMATOCRIT 31.4 % (35.4-49); HEMOGLOBIN 9.9 GM/dL (11.7-16.9); LYMPH % 4.5 % (8-40); MCH 25.9 pg (25.7-33.7); MCHC 31.4 g/dl (32.0-35.9); MEAN CELL VOLUME 82.4 fl (80-96); MEAN PLT VOLUME 10.2 fl (7.5-11.1); MONO % 6.9 % (3.8-10.2); NEUT % 87.5 % (42.8-82.8); PLATELET COUNT 199 K/MM3 (134-434); RDW 18.6 % (11.9-15.9); WHITE BLOOD COUNT 8.1 K/mm3 (4.0-10.0)
[2019-02-03 12:20] LABS: ALBUMIN 2.6 g/dl (3.4-5.0); ALK PHOS 249 U/L (45-117); ANION GAP 18 MMOL/L (8-16); BILIRUBIN,TOTAL 0.7 mg/dL (0.2-1); BLOOD UREA NITROGEN 68.7 mg/dL (7-18); CALCIUM 8.4 mg/dL (8.5-10.1); CHLORIDE 97 mmol/L (98-107); CO2 22 mmol/L (21-32); GLUCOSE,RANDOM 181 mg/dL (74-106); SGOT/AST 156 U/L (15-37); SGPT/ALT 418 U/L (13-61); SODIUM 137 mmol/L (136-145); TOT PROT 6.1 g/dl (6.4-8.2)
[2019-02-03 13:34] LABS: CREATININE 8.5 mg/dL (0.55-1.3)
--- NOTE | 2019-02-03 15:24 | PN ---
Progress Note (short form) - Note Progress Note: CTA done will review images with attending, Dr Verde. Possible intervention for Wednesday 02/07 (angio/plasty/stent) Patient will need Cardiology clearance, please obtain.
[2019-02-03] MEDS ORDERED: INSULIN (LEVEMIR) 100 UNITS/ML UNITS SQ SCH (15:29)
--- NOTE | 2019-02-03 15:31 | PN ---
Progress Note, Physician Chief Complaint: patient seen and examined during HD awake alert no pain foul smell from toes - Current Medication List Current Medications: Active Medications Acetaminophen (Tylenol -) 650 mg PO Q6H PRN PRN Reason: FEVER Heparin Sodium (Porcine) (Heparin -) 5,000 unit SQ BID [facility] Last Admin: 02/03/19 10:10 Dose: 5,000 unit Piperacillin Sod/Tazobactam (Sod 2.25 gm/ Dextrose) 50 mls @ 100 mls/hr IVPB Q8H-IV [facility]; Protocol Last Admin: 02/03/19 10:10 Dose: 100 mls/hr Insulin Aspart (Novolog Vial Sliding Scale -) 1 vial SQ ACHS [facility]; Protocol Last Admin: 02/03/19 06:16 Dose: Not Given Insulin Detemir (Levemir Vial) 15 units SQ HS [facility] Last Admin: 02/02/19 22:52 Dose: 15 units Rosuvastatin Calcium (Crestor -) 10 mg PO HS [facility] Last Admin: 02/02/19 22:51 Dose: 10 mg Sertraline HCl (Zoloft -) 25 mg PO DAILY [facility] Last Admin: 02/03/19 10:10 Dose: 25 mg - Objective Vital Signs: Vital Signs Temperature 97.8 F 02/03/19 10:45 Pulse Rate 79 02/03/19 14:48 Respiratory Rate 18 02/03/19 14:48 Blood Pressure 143/86 02/03/19 14:48 O2 Sat by Pulse Oximetry (%) 96 02/02/19 21:00 Constitutional: Yes: Calm Cardiovascular: Yes: Regular Rate and Rhythm, S1, S2 Respiratory: Yes: CTA Bilaterally Gastrointestinal: Yes: Normal Bowel Sounds, Soft Extremities: Yes: Other (gangreneous toe 1/2 in right foot and left foot heel and lateral border and cyanotic 5 toes foul smell) Labs: CBC, BMP 02/03/19 10:50 02/03/19 10:50 INR, PTT INR 1.67 (0.83-1.09) H 02/01/19 06:15 Problem List - Problems (1) Necrotic toes Assessment/Plan: vascular ,podiatry and ID consult iv abx cta done today to get angioplasty /stent on thursday cardiology clearance Code(s): I96 - GANGRENE, NOT ELSEWHERE CLASSIFIED (2) Diabetes Assessment/Plan: diabetic diet hgba1c 9.3 - uncontrolled endocrine sliding scale bgm levemir dose increased from 15-20 Code(s): E11.9 - TYPE 2 DIABETES MELLITUS WITHOUT COMPLICATIONS Qualifiers: Diabetes mellitus type: type 2 (3) Hyperlipidemia Assessment/Plan: check lipid panel crestor Code(s): E78.5 - HYPERLIPIDEMIA, UNSPECIFIED (4) Elevated LFTs Assessment/Plan: stop statin and tylenol liver sono hepatits panel gi eval Code(s): R94.5 - ABNORMAL RESULTS OF LIVER FUNCTION STUDIES (5) Elevated troponin Assessment/Plan: trend troponin cardiology consult echo Code(s): R74.8 - ABNORMAL LEVELS OF OTHER SERUM ENZYMES
--- NOTE | 2019-02-03 15:55 | PN ---
Progress Note, Physician History of Present Illness: Pt seen and examined at bedside. He is awake and alert. He is tolerating HD. - Current Medication List Current Medications: Active Medications Heparin Sodium (Porcine) (Heparin -) 5,000 unit SQ BID [facility] Last Admin: 02/03/19 10:10 Dose: 5,000 unit Piperacillin Sod/Tazobactam (Sod 2.25 gm/ Dextrose) 50 mls @ 100 mls/hr IVPB Q8H-IV MAISHA; Protocol Last Admin: 02/03/19 10:10 Dose: 100 mls/hr Insulin Aspart (Novolog Vial Sliding Scale -) 1 vial SQ ACHS MAISHA; Protocol Last Admin: 02/03/19 06:16 Dose: Not Given Insulin Detemir (Levemir Vial) 20 units SQ HS MAISHA Sertraline HCl (Zoloft -) 25 mg PO DAILY [facility] Last Admin: 02/03/19 10:10 Dose: 25 mg - Objective Vital Signs: Vital Signs Temperature 97.8 F 02/03/19 10:45 Pulse Rate 79 02/03/19 14:48 Respiratory Rate 18 02/03/19 14:48 Blood Pressure 143/86 02/03/19 14:48 O2 Sat by Pulse Oximetry (%) 96 02/02/19 21:00 Constitutional: Yes: Calm Eyes: Yes: Conjunctiva Clear HENT: Yes: Atraumatic Cardiovascular: Yes: S1, S2 Respiratory: Yes: CTA Bilaterally Gastrointestinal: Yes: Soft Genitourinary: Yes: WNL Musculoskeletal: Yes: WNL Edema: No Wound/Incision: Yes: Dressing Dry and Intact Neurological: Yes: Oriented Psychiatric: Yes: Oriented Labs: CBC, BMP 02/03/19 10:50 02/03/19 10:50 INR, PTT INR 1.67 (0.83-1.09) H 02/01/19 06:15 Problem List - Problems (1) Cellulitis Code(s): L03.90 - CELLULITIS, UNSPECIFIED Qualifiers: Site of cellulitis: extremity Site of cellulitis of extremity: lower extremity Laterality: unspecified laterality Qualified Code(s): L03.119 - Cellulitis of unspecified part of limb (2) Diabetes Code(s): E11.9 - TYPE 2 DIABETES MELLITUS WITHOUT COMPLICATIONS Qualifiers: Diabetes mellitus type: type 2 (3) ESRD (end stage renal disease) Code(s): N18.6 - END STAGE RENAL DISEASE (4) Gangrene Code(s): I96 - GANGRENE, NOT ELSEWHERE CLASSIFIED (5) Hyperlipidemia Code(s): E78.5 - HYPERLIPIDEMIA, UNSPECIFIED Assessment/Plan Current Medications Generic Name Dose Route Start Last Admin Trade Name Freq PRN Reason Stop Dose Admin Heparin Sodium (Porcine) 5,000 unit 01/31/19 22:00 02/03/19 10:10 Heparin - SQ 5,000 unit BID MAISHA Administration Piperacillin Sod/Tazobactam 50 mls @ 100 mls/hr 02/01/19 02:00 02/03/19 10:10 Sod 2.25 gm/ Dextrose IVPB 100 mls/hr Q8H-IV MAISHA Administration Protocol Insulin Aspart 1 vial 01/31/19 16:30 02/03/19 06:16 Novolog Vial Sliding Scale - SQ Not Given ACHS MAISHA Protocol Insulin Detemir 20 units 02/03/19 15:29 Levemir Vial SQ HS MAISHA Sertraline HCl 25 mg 02/02/19 10:00 02/03/19 10:10 Zoloft - PO 25 mg DAILY MAISHA Administration Impression 1. ESRD 2. DM 3. HLD 4. toe gangrene 5. anemia Plan - HD today - follow up cta and vascular - renal diet - cont wound care
--- NOTE | 2019-02-03 16:01 | PN ---
Progress Note (short form) - Note Progress Note: FUV b/l feet. +gangarene b/l feet toes 1&2 right and lateral foot left and dusky 5th toe, gangarene pvd dm CTA done. Awaiting vascular work up will debride once cleared from vascular. Medicine has cleared patient. Will follow. continue betadine dressings.
--- NOTE | 2019-02-03 16:58 | EKG ---
Test Reason : Blood Pressure : / mmHG Vent. Rate : 082 BPM Atrial Rate : 082 BPM P-R Int : 142 ms QRS Dur : 112 ms QT Int : 446 ms P-R-T Axes : 022 054 195 degrees QTc Int : 521 ms NORMAL SINUS RHYTHM POSSIBLE LEFT ATRIAL ENLARGEMENT POSSIBLE INFERIOR INFARCT (CITED ON OR BEFORE 31-JAN-2019) PROLONGED QT ABNORMAL ECG WHEN COMPARED WITH ECG OF 03-FEB-2019 08:37, NO SIGNIFICANT CHANGE WAS FOUND Confirmed by ROBBY BROWN MD ([id number]) on 02/03/2019 4:58:14 PM Referred By: LILIA HECTOR Confirmed By:ROBBY BROWN MD
--- NOTE | 2019-02-03 19:09 | CON.CARD ---
Consult Consult Specialty:: Cardiology Referred by:: Dr. Hamilton Reason for Consultation:: Preop cardiac risk assessment of vascular intervention - History of Present Illness Chief Complaint: Foot pain History of Present Illness: 63 year-old man with a PMHx of HTN, DM-II, HLD, ESRD on HD admitted 01/31/19 with foot pain and foul order with evidence of LE ischemia and toe/necrosis/ gangrene for one month. The patient noted foot pain and discoloration one month ago. He was seen by Dr. Ragsdale and referred for in-patient care and IV abx. He was seen by Renal, ID, psych, podiatry. Vascular consult pending. The patient denies history of CAD, OR or CHF. He has no symptoms of angina or CHF. But his exercise tolerance is limited due to foot pain. ECGs show persistent inferolateral ST-T abnormalities, suggestive of myocardial ischemia. Troponin is elevated (4.07). - History Source History Provided By: Patient, Medical Record Limitations to Obtaining History: No Limitations - Past Medical History Cardio/Vascular: Yes: HTN Renal/: Yes: Renal Failure, Hemodialysis, Other (ESRD on HD) Endocrine: Yes: Diabetes Mellitus - Alcohol/Substance Use Hx Alcohol Use: No - Smoking History Smoking history: Never smoked Have you smoked in the past 12 months: No - Social History Usual Living Arrangement: Alone Home Medications - Allergies Allergies/Adverse Reactions: Allergies Allergy/AdvReac Type Severity Reaction Status Date / Time No Known Allergies Allergy Verified 01/31/19 11:43 - Home Medications Home Medications: Ambulatory Orders Aspirin [ASA -] 81 mg PO DAILY 01/31/19 Insulin (Levemir) [Levemir Vial] 20 unit SQ HS 01/31/19 Rosuvastatin Calcium [Crestor] 20 mg PO HS 01/31/19 Review of Systems - Review of Systems Constitutional: reports: No Symptoms Eyes: reports: No Symptoms HENT: reports: No Symptoms Neck: reports: No Symptoms Cardiovascular: reports: No Symptoms Respiratory: reports: No Symptoms Gastrointestinal: reports: No Symptoms Genitourinary: reports: No Symptoms Breasts: reports: No Symptoms Reported Musculoskeletal: reports: Extremity Pain Integumentary: reports: Change in Color, Lesions Neurological: reports: No Symptoms Endocrine: reports: No Symptoms Hematology/Lymphatic: reports: No Symptoms Vital Signs: Vital Signs Temperature 97.8 F 02/03/19 10:45 Pulse Rate 79 02/03/19 14:48 Respiratory Rate 18 02/03/19 14:48 Blood Pressure 143/86 02/03/19 14:48 O2 Sat by Pulse Oximetry (%) 96 02/03/19 09:00 General: Well developed. Chronic ill. No acute distress. Head: Normocephalic. Atraumatic, Eyes: PERRLA, EOMI. Sclerae anicteric. Conjunctivae clear. Neck: Supple. No JVD. No bruits. Heart: Normal S1, S2: Regular rhythm and rate. I-II/ PONCHO.. No gallop or rub. Lungs: Symmetrical air entry. Clear to auscultation. No crackle. No wheezing or rhonchi. Abdomen: Soft. Bowel sound positive. Non tender. No masses. Extremities: Bilateral foot dressed. No edema. Neuro: Intact, no focal findings. AAO X3. - Other Data Labs, Other Data: CBC, BMP 02/03/19 10:50 02/03/19 10:50 INR, PTT INR 1.67 (0.83-1.09) H 02/01/19 06:15 Imaging - Results EKG: Image Reviewed (ECGs show persistent inferolateral ST-T abnormalities, suggestive of myocardial ischemia.) Assessment/Plan 63 year-old man with a PMHx of HTN, DM-II, HLD, ESRD on HD admitted 01/31/19 with foot pain and foul order with evidence of LE ischemia and toe/necrosis/ gangrene for one month. He was seen by Renal, ID, psych, podiatry. Vascular consult pending. ECGs show persistent inferolateral ST-T abnormalities, suggestive of myocardial ischemia. Troponin is elevated (4.07). Preoperative cardiac risk assessment: The patient has multiple risk factors of CAD with ECG evidence of ischemia and elevated troponin. He might have silent OR. Would observe the patient closely Obtain echocardiogram to evaluate wall motion and LV systolic function. Restart aspirin 81 mg daily and rusovastatin 20 mg daily. Add low dose metoprolol 25 mg BID for better HR and BP control. We will follow the patient with you!
[2019-02-03 20:01] LABS: N-TERMINAL BNP > 35000.0 pg/ml (5-125)
[2019-02-04] MEDS ORDERED: PIPERACILLIN/TAZOBACTAM 2.25 GM VIAL IVPB ONE ×4 (00:58→16:56)
[2019-02-04] MEDS ORDERED: DEXTROSE 5%-WATER - 50 ML IVPB ONE ×4 (00:58→16:56)
[2019-02-04] MEDS: PIPERACILLIN/TAZOB 2.25 GM 2.25 GM in DEXTROSE 5%-WATER - 50 ML IVPB SCH ×3 (01:11→17:16)
--- NOTE | 2019-02-04 01:18 | CONSULT ---
Consult Consult Specialty:: ENDOCRINE Referred by:: DR.STEPANIAN VAZQUEZ Reason for Consultation:: UNCONTROLLED DM/ESRD - History of Present Illness Chief Complaint: FOOT INFECTION AND HIGH SUGARS History of Present Illness: 63 Y MALE pmh,dm2,HTN, DM, BLE neuropathy, ESRD on HD (T,,) who presents for evaluation of BLE infection/celluitis/necrosis He has had,R hallux and second toe gangrenous appearance, as well a similar area on the lateral aspect of his right foot. presented for surgical and medical intervention.he has elevated blood sugars since the infection started. - Past Medical History Cardio/Vascular: Yes: HTN Renal/: Yes: Renal Failure, Hemodialysis, Other (ESRD on HD) Endocrine: Yes: Diabetes Mellitus - Alcohol/Substance Use Hx Alcohol Use: No - Smoking History Smoking history: Never smoked Have you smoked in the past 12 months: No - Social History Usual Living Arrangement: Alone Home Medications - Allergies Allergies/Adverse Reactions: Allergies Allergy/AdvReac Type Severity Reaction Status Date / Time No Known Allergies Allergy Verified 01/31/19 11:43 - Home Medications Home Medications: Ambulatory Orders Aspirin [ASA -] 81 mg PO DAILY 01/31/19 Insulin (Levemir) [Levemir Vial] 20 unit SQ HS 01/31/19 Rosuvastatin Calcium [Crestor] 20 mg PO HS 01/31/19 Review of Systems - Review of Systems Constitutional: reports: Loss of Appetite, Weakness Eyes: reports: Blurred Vision, Recent Change in Vision HENT: reports: No Symptoms Neck: reports: No Symptoms Cardiovascular: reports: No Symptoms Respiratory: reports: Exercise Intolerance, SOB on Exertion Gastrointestinal: reports: Bloating, Constipation Breasts: reports: No Symptoms Reported Musculoskeletal: reports: Extremity Pain, Muscle Cramps, Muscle Weakness Endocrine: reports: Unexplained Weight Loss Physical Exam Vital Signs: Vital Signs Temperature 98.2 F 02/03/19 19:04 Pulse Rate 84 02/03/19 19:04 Respiratory Rate 20 02/03/19 19:04 Blood Pressure 135/73 02/03/19 19:04 O2 Sat by Pulse Oximetry (%) 97 02/03/19 21:00 Constitutional: Yes: Calm Eyes: Yes: EOM Intact HENT: Yes: Normocephalic Neck: Yes: Trachea Midline Cardiovascular: Yes: Regular Rate and Rhythm Respiratory: Yes: CTA Bilaterally Gastrointestinal: Yes: Normal Bowel Sounds ...Rectal Exam: Yes: Deferred Musculoskeletal: Yes: Muscle Pain, Muscle Weakness Extremities: Yes: Delayed Capillary Refill, Erythema Edema: Yes Edema: LLE: Trace, RLE: Trace Peripheral Pulses WNL: No Wound/Incision: Yes: Draining Labs: CBC, BMP 02/03/19 10:50 02/03/19 10:50 Problem List - Problems (1) Controlled diabetes mellitus with diabetic peripheral angiopathy without gangrene, without long-term current use of insulin Code(s): E11.51 - TYPE 2 DIABETES W DIABETIC PERIPHERAL ANGIOPATH W/O GANGRENE (2) Cellulitis Code(s): L03.90 - CELLULITIS, UNSPECIFIED Qualifiers: Site of cellulitis: extremity Site of cellulitis of extremity: lower extremity Laterality: unspecified laterality Qualified Code(s): L03.119 - Cellulitis of unspecified part of limb (3) Diabetes Code(s): E11.9 - TYPE 2 DIABETES MELLITUS WITHOUT COMPLICATIONS Qualifiers: Diabetes mellitus type: type 2 (4) ESRD (end stage renal disease) Code(s): N18.6 - END STAGE RENAL DISEASE (5) Elevated LFTs Code(s): R94.5 - ABNORMAL RESULTS OF LIVER FUNCTION STUDIES (6) Elevated troponin Code(s): R74.8 - ABNORMAL LEVELS OF OTHER SERUM ENZYMES (7) Gangrene Code(s): I96 - GANGRENE, NOT ELSEWHERE CLASSIFIED (8) Hyperlipidemia Code(s): E78.5 - HYPERLIPIDEMIA, UNSPECIFIED Assessment/Plan Current Active Problems Cellulitis (Acute) Diabetes (Acute) ESRD (end stage renal disease) (Acute) Elevated LFTs (Acute) Elevated troponin (Acute) Gangrene (Acute) Hyperlipidemia (Acute) Necrotic toes (Acute) Abnormal Lab Results 02/03/19 02/03/19 10:50 10:50 RBC 3.80 L Hgb 9.9 L Hct 31.4 L MCHC 31.4 L RDW 18.6 H Neutrophils % 87.5 H Lymphocytes % 4.5 L D Chloride 97 L Anion Gap 18 H BUN 68.7 H Creatinine 8.5 H* Random Glucose 181 H Calcium 8.4 L AST 156 H ALT 418 H Alkaline Phosphatase 249 H Troponin I 1.44 H* B-Natriuretic Peptide > 87548.0 H Total Protein 6.1 L Albumin 2.6 L Laboratory Results - last 24 hr 02/03/19 02/03/19 02/03/19 06:12 10:50 10:50 WBC 8.1 RBC 3.80 L Hgb 9.9 L Hct 31.4 L MCV 82.4 MCH 25.9 MCHC 31.4 L RDW 18.6 H Plt Count 199 MPV 10.2 Absolute Neuts (auto) 7.1 Neutrophils % 87.5 H Lymphocytes % 4.5 L D Monocytes % 6.9 Eosinophils % 0.3 D Basophils % 0.8 Nucleated RBC % 0 Sodium 137 Potassium 4.0 Chloride 97 L Carbon Dioxide 22 Anion Gap 18 H BUN 68.7 H Creatinine 8.5 H* Est GFR (CKD-EPI)AfAm 6.95 Est GFR (CKD-EPI)NonAf 6.00 POC Glucometer 150 Random Glucose 181 H Calcium 8.4 L Total Bilirubin 0.7 AST 156 H ALT 418 H Alkaline Phosphatase 249 H Creatine Kinase 26 Troponin I 1.44 H* B-Natriuretic Peptide > 24200.0 H Total Protein 6.1 L Albumin 2.6 L 02/03/19 02/03/19 16:58 22:25 WBC RBC Hgb Hct MCV MCH MCHC RDW Plt Count MPV Absolute Neuts (auto) Neutrophils % Lymphocytes % Monocytes % Eosinophils % Basophils % Nucleated RBC % Sodium Potassium Chloride Carbon Dioxide Anion Gap BUN Creatinine Est GFR (CKD-EPI)AfAm Est GFR (CKD-EPI)NonAf POC Glucometer 210 329 Random Glucose Calcium Total Bilirubin AST ALT Alkaline Phosphatase Creatine Kinase Troponin I B-Natriuretic Peptide Total Protein Albumin plan: bgm qid novolog scale levemir 20 units am levemir 10 units hs ck hba1c
[2019-02-04] MEDS: INSULIN SLIDING SCALE (NOVOLOG) 1 VIAL SQ SCH ×4 (06:46→21:07)
[2019-02-04] MEDS ORDERED: INSULIN (LEVEMIR) 100 UNITS/ML UNITS SQ SCH (07:00)
--- NOTE | 2019-02-04 08:02 | PN ---
Progress Note (short form) - Note Progress Note: FUV b/l feet. +gangarene b/l feet toes 1&2 right and lateral foot left and dusky 5th toe, gangarene pvd dm CTA done. Awaiting vascular recommendations. Dr. Blackman to follow over weekend. continue betadine dressings.
--- NOTE | 2019-02-04 08:18 | CON.GI ---
Consult Consult Specialty:: GI Referred by:: Dr Mojgan Hamilton Reason for Consultation:: Elevated LFTs - History of Present Illness History of Present Illness: Patient is a 63 y/o male with past medical history of HT, DM, BL lower extremity neuropathy, and ESRD on HD. Consult was placed for elevated LFTs. On admission patient was noted with elevated LFTs which peaked on 02/01 with AST 1361, ALT 418, and Alk Phos 345. Repeat labs from 02/03 have shown downtrend. Abdominal US shows cholelithiasis without evidence of cholecystitis and fatty infiltration of the liver. Patient denies chronic ETOH or drug use. He says that he was taking Crestor 20mg. States having non-bloody diarrhea for 3 days, without night awakening, fevers. Denies nausea, vomiting, abdominal pain. Denies rectal bleeding, blood in stool, melena. - History Source History Provided By: Patient Limitations to Obtaining History: No Limitations - Past Medical History Cardio/Vascular: Yes: HTN Renal/: Yes: Renal Failure, Hemodialysis, Other (ESRD on HD) Endocrine: Yes: Diabetes Mellitus - Alcohol/Substance Use Hx Alcohol Use: No - Smoking History Smoking history: Never smoked Have you smoked in the past 12 months: No - Social History Usual Living Arrangement: Alone ADL: Independent History of Recent Travel: No Home Medications - Allergies Allergies/Adverse Reactions: Allergies Allergy/AdvReac Type Severity Reaction Status Date / Time No Known Allergies Allergy Verified 01/31/19 11:43 - Home Medications Home Medications: Ambulatory Orders Aspirin [ASA -] 81 mg PO DAILY 01/31/19 Insulin (Levemir) [Levemir Vial] 20 unit SQ HS 01/31/19 Rosuvastatin Calcium [Crestor] 20 mg PO HS 01/31/19 Review of Systems - Review of Systems Constitutional: reports: No Symptoms Eyes: reports: No Symptoms HENT: reports: No Symptoms Neck: reports: No Symptoms Cardiovascular: reports: No Symptoms Respiratory: reports: No Symptoms Gastrointestinal: reports: Diarrhea Genitourinary: reports: No Symptoms Breasts: reports: No Symptoms Reported Musculoskeletal: reports: No Symptoms Integumentary: reports: No Symptoms Neurological: reports: No Symptoms Endocrine: reports: No Symptoms Hematology/Lymphatic: reports: No Symptoms Psychiatric: reports: No Symptoms Physical Exam-GI Vital Signs: Vital Signs Temperature 98.2 F 02/03/19 19:04 Pulse Rate 84 02/03/19 19:04 Respiratory Rate 20 02/03/19 19:04 Blood Pressure 135/73 02/03/19 19:04 O2 Sat by Pulse Oximetry (%) 97 02/03/19 21:00 Constitutional: Yes: No Distress, Calm Eyes: Yes: Conjunctiva Clear HENT: Yes: Atraumatic Cardiovascular: Yes: Regular Rate and Rhythm Respiratory: Yes: Regular, CTA Bilaterally Gastrointestinal Inspection: Yes: WNL. No: Ascites, Distention, Hernia, Scars, Other ...Auscultate: Yes: Normoactive Bowel Sounds. No: Hyperactive Bowel Sounds, Hypoactive Bowel Sounds, No Bowel Sounds, Other ...Palpate: Yes: Soft. No: Firm/Rigid, Guarding, Hepatomegaly, Mass, Pulsatile Mass, Splenomegaly, Tenderness, Tenderness, Epigastium, Tenderness, Rebound, Other ...Percussion: Yes: Tympanitic. No: Dullness, Fluid Wave, Other Neurological: Yes: Alert, Oriented Psychiatric: Yes: Alert, Oriented Labs: CBC, BMP 02/03/19 10:50 02/03/19 10:50 INR, PTT INR 1.67 (0.83-1.09) H 02/01/19 06:15 Home Medication List Medication Instructions Recorded Confirmed Type Aspirin [ASA -] 81 mg PO DAILY 01/31/19 01/31/19 History Insulin (Levemir) [Levemir Vial] 20 unit SQ HS 01/31/19 01/31/19 History Rosuvastatin Calcium [Crestor] 20 mg PO HS 01/31/19 01/31/19 History Active Medications Generic Name Dose Route Start Last Admin Trade Name Freq PRN Reason Stop Dose Admin Heparin Sodium (Porcine) 5,000 unit 01/31/19 22:00 02/03/19 22:27 Heparin - SQ 5,000 unit BID MAISHA Administration Piperacillin Sod/Tazobactam 50 mls @ 100 mls/hr 02/01/19 02:00 02/04/19 01:11 Sod 2.25 gm/ Dextrose IVPB 100 mls/hr Q8H-IV MAISHA Administration Protocol Insulin Aspart 1 vial 01/31/19 16:30 02/04/19 06:46 Novolog Vial Sliding Scale - SQ 2 units ACHS MAISHA Administration Protocol Insulin Detemir 10 units 02/04/19 22:00 Levemir Vial SQ HS MAISHA Insulin Detemir 20 units 02/04/19 07:00 02/04/19 06:46 Levemir Vial SQ 20 units AM MAISHA Administration Sertraline HCl 25 mg 02/02/19 10:00 02/03/19 10:10 Zoloft - PO 25 mg DAILY MAISHA Administration Problem List - Problems (1) Elevated LFTs Assessment/Plan: >secondary to chronic use of Crestor >monitor LFTs, beginning to show downtrend >discontinue crestor, can start Zetia 10mg daily and if cholesterol poorly controlled can add Colestid 1g BID >US results reviewed >will need outpatient follow up for chronic liver work-up Code(s): R94.5 - ABNORMAL RESULTS OF LIVER FUNCTION STUDIES
--- NOTE | 2019-02-04 08:34 | PN ---
Progress Note (short form) - Note Progress Note: CTA w/ LE runoff completed. Await official read before establishing a plan. Vascular Surgery to cont following
--- NOTE | 2019-02-04 11:45 | EKG ---
Test Reason : Blood Pressure : / mmHG Vent. Rate : 086 BPM Atrial Rate : 086 BPM P-R Int : 146 ms QRS Dur : 116 ms QT Int : 426 ms P-R-T Axes : 031 076 194 degrees QTc Int : 509 ms SINUS RHYTHM WITH OCCASIONAL PREMATURE VENTRICULAR COMPLEXES POSSIBLE LEFT ATRIAL ENLARGEMENT INFERIOR INFARCT (CITED ON OR BEFORE 31-JAN-2019) PROLONGED QT ABNORMAL ECG WHEN COMPARED WITH ECG OF 03-FEB-2019 15:46, PREMATURE VENTRICULAR COMPLEXES ARE NOW PRESENT Confirmed by ROBBY BROWN MD ([id number]) on 02/04/2019 11:45:12 AM Referred By: Confirmed By:ROBBY BROWN MD
[2019-02-04] MEDS: HEPARIN NA (PORCINE) 5,000 UNITS/ML 1ML VIAL SQ SCH ×2 (11:49→21:06)
[2019-02-04] MEDS: SERTRALINE HCL 25 MG TABLET (FP) PO SCH ×2 (11:50→11:53)
--- NOTE | 2019-02-04 12:50 | PN ---
Progress Note, Physician History of Present Illness: AWAKE, ALERT NO C/O FOOT PAIN NO C/O F/C WBC WNL ELEVATED LFTS IMPROVED - Current Medication List Current Medications: Active Medications Heparin Sodium (Porcine) (Heparin -) 5,000 unit SQ BID MAISHA Last Admin: 02/04/19 11:49 Dose: 5,000 unit Piperacillin Sod/Tazobactam (Sod 2.25 gm/ Dextrose) 50 mls @ 100 mls/hr IVPB Q8H-IV MAISHA; Protocol Last Admin: 02/04/19 11:50 Dose: 100 mls/hr Insulin Aspart (Novolog Vial Sliding Scale -) 1 vial SQ ACHS MAISHA; Protocol Last Admin: 02/04/19 06:46 Dose: 2 units Insulin Detemir (Levemir Vial) 10 units SQ HS MAISHA Insulin Detemir (Levemir Vial) 20 units SQ AM MAISHA Last Admin: 02/04/19 06:46 Dose: 20 units Sertraline HCl (Zoloft -) 25 mg PO DAILY MAISHA Last Admin: 02/04/19 11:53 Dose: Not Given - Objective Vital Signs: Vital Signs Temperature 98.2 F 02/03/19 19:04 Pulse Rate 84 02/03/19 19:04 Respiratory Rate 20 02/03/19 19:04 Blood Pressure 135/73 02/03/19 19:04 O2 Sat by Pulse Oximetry (%) 97 02/03/19 21:00 Constitutional: Yes: No Distress Eyes: Yes: Conjunctiva Clear Cardiovascular: Yes: Regular Rate and Rhythm, S1, S2 Respiratory: Yes: CTA Bilaterally Gastrointestinal: Yes: Normal Bowel Sounds, Soft. No: Tenderness Extremities: Yes: Other (+ DRY GANGRENE R 1/2 TOES, ERYTHEMA RESOLVED; + NECROTIC ULCER L LATERAL FOOT) Labs: CBC, BMP 02/03/19 10:50 02/03/19 10:50 INR, PTT INR 1.67 (0.83-1.09) H 02/01/19 06:15 Assessment/Plan GANGRENE, FEET BILATERALLY ESRD ELEVATED LFTS IMPROVED SURGICAL FOLLOW UP CONTINUE MYAH
[2019-02-04] MEDS ORDERED: INSULIN (NOVOLOG) ASPART 100 UNITS/ML 10ML VIAL ONE (13:29)
--- NOTE | 2019-02-04 14:26 | PN ---
Progress Note, Physician Chief Complaint: seen and examined had CTA stop statin LFT trending down troponin trending down History of Present Illness: awake alert no distress - Current Medication List Current Medications: Active Medications Heparin Sodium (Porcine) (Heparin -) 5,000 unit SQ BID [facility] Last Admin: 02/04/19 11:49 Dose: 5,000 unit Piperacillin Sod/Tazobactam (Sod 2.25 gm/ Dextrose) 50 mls @ 100 mls/hr IVPB Q8H-IV MAISHA; Protocol Last Admin: 02/04/19 11:50 Dose: 100 mls/hr Insulin Aspart (Novolog Vial Sliding Scale -) 1 vial SQ ACHS [facility]; Protocol Last Admin: 02/04/19 13:36 Dose: 2 units Insulin Detemir (Levemir Vial) 10 units SQ HS MAISHA Insulin Detemir (Levemir Vial) 20 units SQ AM MAISHA Last Admin: 02/04/19 06:46 Dose: 20 units Sertraline HCl (Zoloft -) 25 mg PO DAILY [facility] Last Admin: 02/04/19 11:53 Dose: Not Given - Objective Vital Signs: Vital Signs Temperature 98.2 F 02/03/19 19:04 Pulse Rate 84 02/03/19 19:04 Respiratory Rate 20 02/03/19 19:04 Blood Pressure 135/73 02/03/19 19:04 O2 Sat by Pulse Oximetry (%) 97 02/03/19 21:00 Constitutional: Yes: Calm Cardiovascular: Yes: Regular Rate and Rhythm, S1, S2 Respiratory: Yes: CTA Bilaterally Gastrointestinal: Yes: Normal Bowel Sounds, Soft Extremities: Yes: Other (dry gangrene toes foul smell) Labs: CBC, BMP 02/03/19 10:50 02/03/19 10:50 INR, PTT INR 1.67 (0.83-1.09) H 02/01/19 06:15 Problem List - Problems (1) Necrotic toes Assessment/Plan: vascular ,podiatry and ID consult iv abx cta done Code(s): I96 - GANGRENE, NOT ELSEWHERE CLASSIFIED (2) Diabetes Assessment/Plan: diabetic diet hgba1c 9.3 - uncontrolled endocrine sliding scale bgm levemir dose increased from 15-20 to 30 units Code(s): E11.9 - TYPE 2 DIABETES MELLITUS WITHOUT COMPLICATIONS Qualifiers: Diabetes mellitus type: type 2 (3) Hyperlipidemia Assessment/Plan: stop statin as lft increased will start taisha jung [facility] consult Code(s): E78.5 - HYPERLIPIDEMIA, UNSPECIFIED (4) Elevated LFTs Assessment/Plan: trending down since statin was stopped Code(s): R94.5 - ABNORMAL RESULTS OF LIVER FUNCTION STUDIES (5) Elevated troponin Assessment/Plan: trend troponin - downwards cardiology consult noted echo Code(s): R74.8 - ABNORMAL LEVELS OF OTHER SERUM ENZYMES
--- NOTE | 2019-02-04 14:44 | ECHO ---
Name: THO TORRES Exam:Adult Echocardiogram Study Date: 02/04/2019 10:03 AM Age: 63 yrs Reason For Study: EF Height: 73 in Weight: 194 lb BSA: 2.1 m2 MMode/2D Measurements & Calculations IVSd: 1.0 cm Ao root diam: 3.3 cm LVIDd: 5.7 cm LA dimension: 4.4 cm LVIDs: 5.0 cm LVPWd: 1.1 cm LVPWs: 1.4 cm EDV(Teich): 159.6 ml ESV(Teich): 116.3 ml LVOT diam: 2.3 cm Doppler Measurements & Calculations Ao V2 max: 137.8 cm/sec LV V1 max P.9 mmHg Ao max P.6 mmHg LV V1 mean P.84 mmHg Ao V2 mean: 95.2 cm/sec LV V1 max: 68.6 cm/sec Ao mean P.4 mmHg LV V1 mean: 41.1 cm/sec Ao V2 VTI: 22.5 cm LV V1 VTI: 10.0 cm ANNIE(I,D): 1.8 cm2 ANNIE(V,D): 2.1 cm2 MR max den: 333.9 cm/sec SV(LVOT): 41.2 ml MR max P.6 mmHg TR max den: 364.0 cm/sec PA V2 max: 65.2 cm/sec TR max P.0 mmHg PA max P.7 mmHg RVSP(TR): 63.0 mmHg Med Peak E' Den: 3.8 cm/sec RAP systole: 10.0 mmHg Lat Peak E' Den: 8.8 cm/sec Procedure A complete two-dimensional transthoracic echocardiogram was performed (2D, M-mode, Doppler and color flow Doppler). Left Ventricle The left ventricle is moderately dilated. Ejection Fraction = 15-20%. Left ventricular systolic funct ion is severely reduced. There is severe global hypokinesis of the left ventricle. Right Ventricle The right ventricle is normal in size and function. Atria The left atrium is mildly dilated. The right atrium is mildly dilated. Mitral Valve There is trace mitral regurgitation. Tricuspid Valve There is moderate tricuspid regurgitation. There is severe pulmonary hypertension. Aortic Valve No hemodynamically significant valvular aortic stenosis. No aortic regurgitation is present. Pulmonic Valve There is no pulmonic valvular regurgitation. Great Vessels The aortic root is normal size. Pericardium/Pleura There is no pericardial effusion. Interpretation Summary The left ventricle is moderately dilated. Left ventricular systolic function is severely reduced. There is severe global hypokinesis of the left ventricle. The right ventricle is normal in size and function. The left atrium is mildly dilated. The right atrium is mildly dilated. There is trace mitral regurgitation. There is moderate tricuspid regurgitation. There is severe pulmonary hypertension. MD Jarett Ramos 02/04/2019 02:43 PM
[2019-02-04] MEDS: ASPIRIN 81 MG CHEWABLE TABLETS PO SCH (16:47)
[2019-02-04] MEDS ORDERED: SODIUM CHLORIDE 250 ML IV PRN (17:04)
--- NOTE | 2019-02-04 17:04 | PN ---
Progress Note, Physician History of Present Illness: Pt seen and examined at bedside. He is awake and alert. He denies shortness of breath. - Current Medication List Current Medications: Active Medications Aspirin (Asa -) 81 mg PO DAILY [facility] [place] Last Admin: 02/04/19 16:47 Dose: 81 mg Heparin Sodium (Porcine) (Heparin -) 5,000 unit SQ BID [facility] [place] Last Admin: 02/04/19 11:49 Dose: 5,000 unit Piperacillin Sod/Tazobactam (Sod 2.25 gm/ Dextrose) 50 mls @ 100 mls/hr IVPB Q8H-IV [facility]; Protocol Last Admin: 02/04/19 11:50 Dose: 100 mls/hr Insulin Aspart (Novolog Vial Sliding Scale -) 1 vial SQ ACHS [facility] [place]; Protocol Last Admin: 02/04/19 13:36 Dose: 2 units Insulin Detemir (Levemir Vial) 10 units SQ HS [facility] Insulin Detemir (Levemir Vial) 20 units SQ AM [facility] [place] Last Admin: 02/04/19 06:46 Dose: 20 units Metoprolol Succinate (Toprol Xl -) 25 mg PO BID [facility] [place] Sertraline HCl (Zoloft -) 25 mg PO DAILY [facility] [place] Last Admin: 02/04/19 11:53 Dose: Not Given - Objective Vital Signs: Vital Signs Temperature 98 F 02/04/19 14:21 Pulse Rate 89 02/04/19 14:21 Respiratory Rate 20 02/04/19 14:21 Blood Pressure 130/77 02/04/19 14:21 O2 Sat by Pulse Oximetry (%) 96 02/04/19 09:00 Constitutional: Yes: Calm Eyes: Yes: Conjunctiva Clear HENT: Yes: Atraumatic Neck: Yes: Supple Cardiovascular: Yes: S1, S2 Respiratory: Yes: CTA Bilaterally Gastrointestinal: Yes: Soft Genitourinary: Yes: WNL Musculoskeletal: Yes: WNL Edema: No Wound/Incision: Yes: Dressing Dry and Intact Neurological: Yes: Oriented Labs: CBC, BMP 02/03/19 10:50 02/03/19 10:50 INR, PTT INR 1.67 (0.83-1.09) H 02/01/19 06:15 Problem List - Problems (1) Cellulitis Code(s): L03.90 - CELLULITIS, UNSPECIFIED Qualifiers: Site of cellulitis: extremity Site of cellulitis of extremity: lower extremity Laterality: unspecified laterality Qualified Code(s): L03.119 - Cellulitis of unspecified part of limb (2) Diabetes Code(s): E11.9 - TYPE 2 DIABETES MELLITUS WITHOUT COMPLICATIONS Qualifiers: Diabetes mellitus type: type 2 (3) ESRD (end stage renal disease) Code(s): N18.6 - END STAGE RENAL DISEASE (4) Gangrene Code(s): I96 - GANGRENE, NOT ELSEWHERE CLASSIFIED (5) Hyperlipidemia Code(s): E78.5 - HYPERLIPIDEMIA, UNSPECIFIED Assessment/Plan Current Medications Generic Name Dose Route Start Last Admin Trade Name Freq PRN Reason Stop Dose Admin Aspirin 81 mg 02/04/19 14:30 02/04/19 16:47 Asa - PO 81 mg DAILY [facility] Administration Heparin Sodium (Porcine) 5,000 unit 01/31/19 22:00 02/04/19 11:49 Heparin - SQ 5,000 unit BID [facility] Administration Piperacillin Sod/Tazobactam 50 mls @ 100 mls/hr 02/01/19 02:00 02/04/19 11:50 Sod 2.25 gm/ Dextrose IVPB 100 mls/hr Q8H-IV [facility] Administration Protocol Insulin Aspart 1 vial 01/31/19 16:30 02/04/19 13:36 Novolog Vial Sliding Scale - SQ 2 units ACHS [facility] Administration Protocol Insulin Detemir 10 units 02/04/19 22:00 Levemir Vial SQ HS [facility] Insulin Detemir 20 units 02/04/19 07:00 02/04/19 06:46 Levemir Vial SQ 20 units AM [facility] Administration Metoprolol Succinate 25 mg 02/04/19 22:00 Toprol Xl - PO BID [facility] Sertraline HCl 25 mg 02/02/19 10:00 02/04/19 11:53 Zoloft - PO Not Given DAILY [facility] Impression 1. ESRD 2. DM 3. HLD 4. toe gangrene 5. anemia Plan - HD in am - vascular follow up - cont renal diet - volume status is stable - epogen for anemia - cont wound care
--- NOTE | 2019-02-04 17:37 | PN ---
Progress Note, Physician Chief Complaint: The patient appears comfortable at the time of exam. She has no SOB at rest, chest pain or palpitation. History of Present Illness: 63 year-old man with a PMHx of HTN, DM-II, HLD, ESRD on HD admitted 01/31/19 with foot pain and foul order with evidence of LE ischemia and toe/necrosis/ gangrene for one month. The patient noted foot pain and discoloration one month ago. He was seen by Dr. Ragsdale and referred for in-patient care and IV abx. He was seen by Renal, ID, psych, podiatry and vascular. LE angio planned. ECGs show persistent inferolateral ST-T abnormalities, suggestive of myocardial ischemia. Troponin is elevated (4.07). Echocardiogram 02/04/19: Moderate LV dilatation with severe global LV systolic dysfunction. LVEF = 15-20%. Normal RV. Mild LA and RA dilatation. Minimal MR. Moderate TR. - Current Medication List Current Medications: Active Medications Aspirin (Asa -) 81 mg PO DAILY [facility] Last Admin: 02/04/19 16:47 Dose: 81 mg Epoetin Donato (Epogen -) 4,000 unit IVPUSH ONCE ONE Stop: 02/05/19 17:05 Heparin Sodium (Porcine) (Heparin -) 5,000 unit SQ BID [facility] Last Admin: 02/04/19 11:49 Dose: 5,000 unit Piperacillin Sod/Tazobactam (Sod 2.25 gm/ Dextrose) 50 mls @ 100 mls/hr IVPB Q8H-IV [facility]; Protocol Last Admin: 02/04/19 17:16 Dose: 100 mls/hr Sodium Chloride (Normal Saline -) 250 mls @ 3,000 mls/hr IV PRN PRN PRN Reason: Hypotension during Dialysis Stop: 02/05/19 17:04 Insulin Aspart (Novolog Vial Sliding Scale -) 1 vial SQ ACHS [facility]; Protocol Last Admin: 02/04/19 17:14 Dose: Not Given Insulin Detemir (Levemir Vial) 10 units SQ HS [facility] Insulin Detemir (Levemir Vial) 20 units SQ AM [facility] Last Admin: 02/04/19 06:46 Dose: 20 units Metoprolol Succinate (Toprol Xl -) 25 mg PO BID [facility] Sertraline HCl (Zoloft -) 25 mg PO DAILY [facility] Last Admin: 02/04/19 11:53 Dose: Not Given - Objective Vital Signs: Vital Signs Temperature 98 F 02/04/19 14:21 Pulse Rate 89 02/04/19 14:21 Respiratory Rate 20 02/04/19 14:21 Blood Pressure 130/77 02/04/19 14:21 O2 Sat by Pulse Oximetry (%) 96 02/04/19 09:00 General: Well developed. Chronic ill. No acute distress. Head: Normocephalic. Atraumatic, Eyes: PERRLA, EOMI. Sclerae anicteric. Conjunctivae clear. Neck: Supple. No JVD. No bruits. Heart: Normal S1, S2: Regular rhythm and rate. I-II/ PONCHO.. No gallop or rub. Lungs: Symmetrical air entry. Clear to auscultation. No crackle. No wheezing or rhonchi. Abdomen: Soft. Bowel sound positive. Non tender. No masses. Extremities: Bilateral foot dressed. No edema. Neuro: Intact, no focal findings. AAO X3. Labs: CBC, BMP 02/03/19 10:50 02/03/19 10:50 INR, PTT INR 1.67 (0.83-1.09) H 02/01/19 06:15 Assessment/Plan 63 year-old man with a PMHx of HTN, DM-II, HLD, ESRD on HD admitted 01/31/19 with foot pain and foul order with evidence of LE ischemia and toe/necrosis/ gangrene for one month. The patient noted foot pain and discoloration one month ago. He was seen by Dr. Ragsdale and referred for in-patient care and IV abx. He was seen by Renal, ID, psych, podiatry and vascular. LE angio planned. ECGs show persistent inferolateral ST-T abnormalities, suggestive of myocardial ischemia. Troponin is elevated (4.07). Echocardiogram 02/04/19: Moderate LV dilatation with severe global LV systolic dysfunction. LVEF = 15-20%. Normal RV. Mild LA and RA dilatation. Minimal MR. Moderate TR. 1) Preoperative cardiac risk assessment: The patient has multiple risk factors of CAD with ECG evidence of ischemia and elevated troponin. He is likely having silent RI. He has severe LV systolic dysfunction, possible secondary to ischemic cardiomyopathy. He is at high risk cardiac complications (Revised Cardiac Risk Index (RCRI) 4 predictors = >11%) for any surgical intervention at this time. Would observe the patient closely 2) Systolic CHF, likely chronic, possible secondary to ischemic cardiomyopathy. Ischemic work up, cardiac cath should be performed in near future. Continue metoprolol 25 mg BID Start diovan 80 mg daily. We will follow the patient with you!
--- NOTE | 2019-02-04 18:10 | PN ---
Progress Note, Physician Chief Complaint: continues labile bs - Current Medication List Current Medications: Active Medications Aspirin (Asa -) 81 mg PO DAILY [facility] Last Admin: 02/04/19 16:47 Dose: 81 mg Epoetin Donato (Epogen -) 4,000 unit IVPUSH ONCE ONE Stop: 02/05/19 17:05 Heparin Sodium (Porcine) (Heparin -) 5,000 unit SQ BID [facility] Last Admin: 02/04/19 11:49 Dose: 5,000 unit Piperacillin Sod/Tazobactam (Sod 2.25 gm/ Dextrose) 50 mls @ 100 mls/hr IVPB Q8H-IV [facility]; Protocol Last Admin: 02/04/19 17:16 Dose: 100 mls/hr Sodium Chloride (Normal Saline -) 250 mls @ 3,000 mls/hr IV PRN PRN PRN Reason: Hypotension during Dialysis Stop: 02/05/19 17:04 Insulin Aspart (Novolog Vial Sliding Scale -) 1 vial SQ ACHS [facility]; Protocol Last Admin: 02/04/19 17:14 Dose: Not Given Insulin Detemir (Levemir Vial) 10 units SQ HS [facility] Insulin Detemir (Levemir Vial) 25 units SQ AM [facility] Metoprolol Succinate (Toprol Xl -) 25 mg PO BID [facility] Sertraline HCl (Zoloft -) 25 mg PO DAILY [facility] Last Admin: 02/04/19 11:53 Dose: Not Given - Objective Vital Signs: Vital Signs Temperature 97.7 F 02/04/19 17:45 Pulse Rate 87 02/04/19 17:45 Respiratory Rate 20 02/04/19 17:45 Blood Pressure 148/72 02/04/19 17:45 O2 Sat by Pulse Oximetry (%) 96 02/04/19 09:00 Constitutional: Yes: Calm Eyes: Yes: EOM Intact HENT: Yes: Normocephalic Neck: Yes: Trachea Midline Cardiovascular: Yes: Regular Rate and Rhythm Respiratory: Yes: CTA Bilaterally Gastrointestinal: Yes: Normal Bowel Sounds ...Rectal Exam: Yes: Deferred Breast(s): Yes: WNL Extremities: Yes: Cool Edema: Yes Edema: LLE: 1+, RLE: 1+ Integumentary: Yes: Venous Stasis Changes Wound/Incision: Yes: Draining Neurological: Yes: Alert, Oriented Labs: CBC, BMP 02/03/19 10:50 02/03/19 10:50 INR, PTT INR 1.67 (0.83-1.09) H 02/01/19 06:15 Problem List - Problems (1) Controlled diabetes mellitus with diabetic peripheral angiopathy without gangrene, without long-term current use of insulin Code(s): E11.51 - TYPE 2 DIABETES W DIABETIC PERIPHERAL ANGIOPATH W/O GANGRENE Qualifiers: Diabetes mellitus type: type 2 Qualified Code(s): E11.51 - Type 2 diabetes mellitus with diabetic peripheral angiopathy without gangrene (2) Cellulitis Code(s): L03.90 - CELLULITIS, UNSPECIFIED Qualifiers: Site of cellulitis: extremity Site of cellulitis of extremity: lower extremity Laterality: unspecified laterality Qualified Code(s): L03.119 - Cellulitis of unspecified part of limb (3) Diabetes Code(s): E11.9 - TYPE 2 DIABETES MELLITUS WITHOUT COMPLICATIONS Qualifiers: Diabetes mellitus type: type 2 (4) ESRD (end stage renal disease) Code(s): N18.6 - END STAGE RENAL DISEASE (5) Elevated LFTs Code(s): R94.5 - ABNORMAL RESULTS OF LIVER FUNCTION STUDIES (6) Elevated troponin Code(s): R74.8 - ABNORMAL LEVELS OF OTHER SERUM ENZYMES (7) Gangrene Code(s): I96 - GANGRENE, NOT ELSEWHERE CLASSIFIED (8) Hyperlipidemia Code(s): E78.5 - HYPERLIPIDEMIA, UNSPECIFIED Assessment/Plan Current Active Problems Cellulitis (Acute) Controlled diabetes mellitus with diabetic peripheral angiopathy without gangrene, without long-term current use of insulin (Acute) Diabetes (Acute) ESRD (end stage renal disease) (Acute) Elevated LFTs (Acute) Elevated troponin (Acute) Gangrene (Acute) Hyperlipidemia (Acute) Necrotic toes (Acute) Abnormal Lab Results 02/03/19 02/04/19 10:50 08:26 Creatine Kinase 24 L Troponin I 1.44 H* 1.19 H* B-Natriuretic Peptide > 83203.0 H Laboratory Results - last 24 hr 02/03/19 02/03/19 02/04/19 10:50 22:25 06:45 POC Glucometer 329 217 Creatine Kinase 26 Troponin I 1.44 H* B-Natriuretic Peptide > 78032.0 H 0802/04/19 02/04/19 08:26 12:11 16:51 POC Glucometer 223 174 Creatine Kinase 24 L Troponin I 1.19 H* B-Natriuretic Peptide plan: bgm qid novolog scale doses titrate levemir 25units am levemir dose 10units hs
[2019-02-04] MEDS: metoPROLOL SUCCINATE 25 MG TAB.SR.24H (FP) PO SCH (21:06)
[2019-02-04] MEDS: INSULIN (LEVEMIR) 100 UNITS/ML UNITS SQ SCH (21:07)
[2019-02-04] MEDS ORDERED: ROSUVASTATIN CA 20 MG TABLET (FP) PO SCH (22:00)
[2019-02-05] MEDS: PIPERACILLIN/TAZOB 2.25 GM 2.25 GM in DEXTROSE 5%-WATER - 50 ML IVPB SCH ×4 (02:52→17:50)
[2019-02-05] MEDS: INSULIN SLIDING SCALE (NOVOLOG) 1 VIAL SQ SCH ×4 (06:16→22:15)
[2019-02-05] MEDS: INSULIN (LEVEMIR) 100 UNITS/ML UNITS SQ SCH ×2 (06:16→22:13)
[2019-02-05 08:33] LABS: HEMOGLOBIN 10.3 GM/dL (11.7-16.9); MCH 26.5 pg (25.7-33.7); MCHC 32.2 g/dl (32.0-35.9); MEAN CELL VOLUME 82.2 fl (80-96); MEAN PLT VOLUME 10.6 fl (7.5-11.1); PLATELET COUNT 193 K/MM3 (134-434); RDW 19.2 % (11.9-15.9); WHITE BLOOD COUNT 10.4 K/mm3 (4.0-10.0)
[2019-02-05 08:56] LABS: BLOOD UREA NITROGEN 70.3 mg/dL (7-18); CALCIUM 8.4 mg/dL (8.5-10.1); POTASSIUM 4.1 mmol/L (3.5-5.1)
[2019-02-05] MEDS ORDERED: EPOETIN ALFA 2,000 UNIT/1 ML VIAL IVPUSH ONE (10:00)
[2019-02-05 10:01] LABS: ALBUMIN 2.7 g/dl (3.4-5.0); BILIRUBIN,DIRECT 0.5 mg/dL (0.0-0.2); BILIRUBIN,TOTAL 0.8 mg/dL (0.2-1); TOT PROT 6.3 g/dl (6.4-8.2)
[2019-02-05] MEDS: SERTRALINE HCL 25 MG TABLET (FP) PO SCH (11:05)
[2019-02-05] MEDS: HEPARIN NA (PORCINE) 5,000 UNITS/ML 1ML VIAL SQ SCH ×2 (11:05→22:16)
[2019-02-05] MEDS: metoPROLOL SUCCINATE 25 MG TAB.SR.24H (FP) PO SCH ×2 (11:05→22:17)
[2019-02-05] MEDS: ASPIRIN 81 MG CHEWABLE TABLETS PO SCH (11:05)
[2019-02-05 11:15] LABS: BLOOD UREA NITROGEN 20.6 mg/dL (7-18); CREATININE 2.8 mg/dL (0.55-1.3)
--- NOTE | 2019-02-05 12:52 | PN ---
Progress Note (short form) - Note Progress Note: LFTS still elevated , statins and epogen discontinued, check lft in 2 days if still elevated willl need to consider to d/c leatha Problem List - Problems (1) Elevated LFTs Code(s): R94.5 - ABNORMAL RESULTS OF LIVER FUNCTION STUDIES
--- NOTE | 2019-02-05 14:31 | PN ---
Progress Note, Physician Chief Complaint: No chest pain or sob History of Present Illness: 63 year-old man with a PMHx of HTN, DM-II, HLD, ESRD on HD admitted 01/31/19 with foot pain and foul order with evidence of LE ischemia and toe/necrosis/ gangrene for one month. The patient noted foot pain and discoloration one month ago. He was seen by Dr. Ragsdale and referred for in-patient care and IV abx. He was seen by Renal, ID, psych, podiatry and vascular. LE angio planned. ECGs show persistent inferolateral ST-T abnormalities, suggestive of myocardial ischemia. Troponin is elevated (4.07). Echocardiogram 02/04/19: Moderate LV dilatation with severe global LV systolic dysfunction. LVEF = 15-20%. Normal RV. Mild LA and RA dilatation. Minimal MR. Moderate TR. - Current Medication List Current Medications: Active Medications Aspirin (Asa -) 81 mg PO DAILY [facility] Last Admin: 02/05/19 11:05 Dose: Not Given Heparin Sodium (Porcine) (Heparin -) 5,000 unit SQ BID [facility] Last Admin: 02/05/19 11:05 Dose: Not Given Piperacillin Sod/Tazobactam (Sod 2.25 gm/ Dextrose) 50 mls @ 100 mls/hr IVPB Q8H-IV [facility]; Protocol Last Admin: 02/05/19 11:06 Dose: Not Given Insulin Aspart (Novolog Vial Sliding Scale -) 1 vial SQ ACHS [facility]; Protocol Last Admin: 02/05/19 11:06 Dose: Not Given Insulin Detemir (Levemir Vial) 10 units SQ HS [facility] Last Admin: 02/04/19 21:07 Dose: 10 units Insulin Detemir (Levemir Vial) 25 units SQ AM [facility] Last Admin: 02/05/19 06:16 Dose: 25 units Metoprolol Succinate (Toprol Xl -) 25 mg PO BID [facility] Last Admin: 02/05/19 11:05 Dose: Not Given Sertraline HCl (Zoloft -) 25 mg PO DAILY [facility] Last Admin: 02/05/19 11:05 Dose: Not Given - Objective Vital Signs: Vital Signs Temperature 98.0 F 02/05/19 06:55 Pulse Rate 81 02/05/19 10:50 Respiratory Rate 18 02/05/19 10:50 Blood Pressure 154/93 02/05/19 10:50 O2 Sat by Pulse Oximetry (%) 96 02/04/19 21:00 Constitutional: Yes: No Distress Neck: Yes: Supple Cardiovascular: Yes: Regular Rate and Rhythm, Murmur (2/6 HSM), S1, S2. No: JVD Respiratory: Yes: CTA Bilaterally Gastrointestinal: Yes: Soft Extremities: Yes: Other (B/l dressings on feet) Edema: No Labs: CBC, BMP 02/05/19 07:21 02/05/19 10:39 INR, PTT INR 1.67 (0.83-1.09) H 02/01/19 06:15 Assessment/Plan 63 year-old man with a PMHx of HTN, DM-II, HLD, ESRD on HD admitted 01/31/19 with foot pain and foul order with evidence of LE ischemia and toe/necrosis/ gangrene for one month. The patient noted foot pain and discoloration one month ago. He was seen by Dr. Ragsdale and referred for in-patient care and IV abx. He was seen by Renal, ID, psych, podiatry and vascular. LE angio planned. ECGs show persistent inferolateral ST-T abnormalities, suggestive of myocardial ischemia. Troponin is elevated (4.07). Echocardiogram 02/04/19: Moderate LV dilatation with severe global LV systolic dysfunction. LVEF = 15-20%. Normal RV. Mild LA and RA dilatation. Minimal MR. Moderate TR. 1) Preoperative cardiac risk assessment: The patient has multiple risk factors of CAD with ECG evidence of ischemia and elevated troponin. He is likely having silent NH. He has severe LV systolic dysfunction, possible secondary to ischemic cardiomyopathy. He is at high risk cardiac complications (Revised Cardiac Risk Index (RCRI) 4 predictors = >11%) for any surgical intervention at this time. Would observe the patient closely 2) Systolic CHF, likely chronic, possible secondary to ischemic cardiomyopathy. Ischemic work up, cardiac cath should be performed in near future. Continue metoprolol 25 mg BID Start diovan 80 mg daily if K allows and adjust dialysis as needed. Statin on hold given lfts
--- NOTE | 2019-02-05 15:31 | PN ---
Progress Note, Physician History of Present Illness: Pt seen and examined at bedside. He is awake and alert. he tolerated HD today. - Current Medication List Current Medications: Active Medications Aspirin (Asa -) 81 mg PO DAILY [facility] Last Admin: 02/05/19 11:05 Dose: Not Given Heparin Sodium (Porcine) (Heparin -) 5,000 unit SQ BID [facility] Last Admin: 02/05/19 11:05 Dose: Not Given Piperacillin Sod/Tazobactam (Sod 2.25 gm/ Dextrose) 50 mls @ 100 mls/hr IVPB Q8H-IV [facility]; Protocol Last Admin: 02/05/19 11:06 Dose: Not Given Insulin Aspart (Novolog Vial Sliding Scale -) 1 vial SQ ACHS [facility]; Protocol Last Admin: 02/05/19 11:06 Dose: Not Given Insulin Detemir (Levemir Vial) 10 units SQ HS [facility] Last Admin: 02/04/19 21:07 Dose: 10 units Insulin Detemir (Levemir Vial) 25 units SQ AM [facility] Last Admin: 02/05/19 06:16 Dose: 25 units Metoprolol Succinate (Toprol Xl -) 25 mg PO BID [facility] Last Admin: 02/05/19 11:05 Dose: Not Given Sertraline HCl (Zoloft -) 25 mg PO DAILY [facility] Last Admin: 02/05/19 11:05 Dose: Not Given - Objective Vital Signs: Vital Signs Temperature 98.0 F 02/05/19 06:55 Pulse Rate 81 02/05/19 10:50 Respiratory Rate 18 02/05/19 10:50 Blood Pressure 154/93 02/05/19 10:50 O2 Sat by Pulse Oximetry (%) 96 02/04/19 21:00 Constitutional: Yes: Calm Eyes: Yes: Conjunctiva Clear HENT: Yes: Atraumatic Neck: Yes: Supple Cardiovascular: Yes: S1, S2 Respiratory: Yes: CTA Bilaterally Gastrointestinal: Yes: Normal Bowel Sounds, Soft Genitourinary: Yes: WNL Musculoskeletal: Yes: WNL Edema: No Neurological: Yes: Oriented Psychiatric: Yes: Oriented Labs: CBC, BMP 02/05/19 07:21 02/05/19 10:39 INR, PTT INR 1.67 (0.83-1.09) H 02/01/19 06:15 Problem List - Problems (1) Cellulitis Code(s): L03.90 - CELLULITIS, UNSPECIFIED Qualifiers: Site of cellulitis: extremity Site of cellulitis of extremity: lower extremity Laterality: unspecified laterality Qualified Code(s): L03.119 - Cellulitis of unspecified part of limb (2) Diabetes Code(s): E11.9 - TYPE 2 DIABETES MELLITUS WITHOUT COMPLICATIONS Qualifiers: Diabetes mellitus type: type 2 (3) ESRD (end stage renal disease) Code(s): N18.6 - END STAGE RENAL DISEASE (4) Gangrene Code(s): I96 - GANGRENE, NOT ELSEWHERE CLASSIFIED (5) Hyperlipidemia Code(s): E78.5 - HYPERLIPIDEMIA, UNSPECIFIED Assessment/Plan Current Medications Generic Name Dose Route Start Last Admin Trade Name Freq PRN Reason Stop Dose Admin Aspirin 81 mg 02/04/19 14:30 02/05/19 11:05 Asa - PO Not Given DAILY [facility] Heparin Sodium (Porcine) 5,000 unit 01/31/19 22:00 02/05/19 11:05 Heparin - SQ Not Given BID [facility] Piperacillin Sod/Tazobactam 50 mls @ 100 mls/hr 02/01/19 02:00 02/05/19 11:06 Sod 2.25 gm/ Dextrose IVPB Not Given Q8H-IV [facility] Protocol Insulin Aspart 1 vial 01/31/19 16:30 02/05/19 11:06 Novolog Vial Sliding Scale - SQ Not Given ACHS [facility] Protocol Insulin Detemir 10 units 02/04/19 22:00 02/04/19 21:07 Levemir Vial SQ 10 units HS [facility] Administration Insulin Detemir 25 units 02/05/19 07:00 02/05/19 06:16 Levemir Vial SQ 25 units AM [facility] Administration Metoprolol Succinate 25 mg 02/04/19 22:00 02/05/19 11:05 Toprol Xl - PO Not Given BID [facility] Sertraline HCl 25 mg 02/02/19 10:00 02/05/19 11:05 Zoloft - PO Not Given DAILY [facility] Impression 1. ESRD 2. DM 3. HLD 4. toe gangrene 5. anemia Plan - HD today, pt tolerated - volume status is stable - epogen for anemia - cont wound care - renal diet
[2019-02-05] MEDS ORDERED: PIPERACILLIN/TAZOBACTAM 2.25 GM VIAL IVPB ONE (15:48)
[2019-02-05] MEDS ORDERED: DEXTROSE 5%-WATER - 50 ML IVPB ONE (15:48)
--- NOTE | 2019-02-05 16:08 | PN ---
Progress Note, Physician Chief Complaint: Gangrene toes ESRD on HD DM History of Present Illness: Previous notes and events reviewed awake and alert NAD denies complaints of pain or SOB LFTs elevated - Current Medication List Current Medications: Active Medications Aspirin (Asa -) 81 mg PO DAILY [facility] Last Admin: 02/05/19 11:05 Dose: Not Given Heparin Sodium (Porcine) (Heparin -) 5,000 unit SQ BID [facility] Last Admin: 02/05/19 11:05 Dose: Not Given Piperacillin Sod/Tazobactam (Sod 2.25 gm/ Dextrose) 50 mls @ 100 mls/hr IVPB Q8H-IV [facility]; Protocol Last Admin: 02/05/19 15:53 Dose: 100 mls/hr Insulin Aspart (Novolog Vial Sliding Scale -) 1 vial SQ ACHS [facility]; Protocol Last Admin: 02/05/19 11:06 Dose: Not Given Insulin Detemir (Levemir Vial) 10 units SQ HS [facility] Last Admin: 02/04/19 21:07 Dose: 10 units Insulin Detemir (Levemir Vial) 25 units SQ AM [facility] Last Admin: 02/05/19 06:16 Dose: 25 units Metoprolol Succinate (Toprol Xl -) 25 mg PO BID [facility] Last Admin: 02/05/19 11:05 Dose: Not Given Sertraline HCl (Zoloft -) 25 mg PO DAILY [facility] Last Admin: 02/05/19 11:05 Dose: Not Given - Objective Vital Signs: Vital Signs Temperature 98.0 F 02/05/19 06:55 Pulse Rate 81 02/05/19 10:50 Respiratory Rate 18 02/05/19 10:50 Blood Pressure 154/93 02/05/19 10:50 O2 Sat by Pulse Oximetry (%) 96 02/04/19 21:00 Constitutional: Yes: No Distress, Calm Eyes: Yes: Conjunctiva Clear HENT: Yes: Atraumatic Cardiovascular: Yes: Regular Rate and Rhythm Respiratory: Yes: Regular, CTA Bilaterally Gastrointestinal: Yes: Normal Bowel Sounds, Soft Musculoskeletal: Yes: WNL Extremities: Yes: WNL Edema: Yes Edema: LLE: Trace, RLE: Trace Wound/Incision: Yes: Dressing Dry and Intact Neurological: Yes: Alert, Oriented Psychiatric: Yes: Alert, Oriented Labs: CBC, BMP 02/05/19 07:21 02/05/19 10:39 INR, PTT INR 1.67 (0.83-1.09) H 02/01/19 06:15 Microbiology 01/31/19 12:45 Blood - Peripheral Venous Blood Culture - Final NO GROWTH AFTER 5 DAYS INCUBATION 01/31/19 12:45 Blood - Peripheral Venous Blood Culture - Final NO GROWTH AFTER 5 DAYS INCUBATION Problem List - Problems (1) Diabetes Assessment/Plan: -BGM ACHS -Levemir -ISS -HgA1c 9.3% -Endo on board Code(s): E11.9 - TYPE 2 DIABETES MELLITUS WITHOUT COMPLICATIONS Qualifiers: Diabetes mellitus type: type 2 (2) ESRD (end stage renal disease) Assessment/Plan: -Renal on board -continue HD on scheduled days -BUN/Cr 20.6/2.8 Code(s): N18.6 - END STAGE RENAL DISEASE (3) Elevated LFTs Assessment/Plan: -GI on board -AST 219, ALT 438, Alk Phos 266 -Statin d/c, start zetia if need -US shows fatty infiltration of the liver Code(s): R94.5 - ABNORMAL RESULTS OF LIVER FUNCTION STUDIES (4) Gangrene Assessment/Plan: -Vascular, Podiatry on board -CTA with LE runoff shows severe femoropopliteal and infrapopliteal atherosclerotic disease, right more than left, short segmental occlusions throughout femoral-popliteal segments coupled with occluded bilateral ATAs, high grade bilateral TP trunk stenosis, short segmental occlusionsof bilateral PRESS CUTTER, occluded distal left peroneal artery, occlusion of middle half of left deep femoral artery -ID on board -Zosyn -afebrile -leukocytosis wbc 10.4 -daily dressing changes -as per cardiology consult: he is at high risk cardiac complications for surgical interventios Code(s): I96 - GANGRENE, NOT ELSEWHERE CLASSIFIED (5) Hyperlipidemia Assessment/Plan: -statin d/c due to elevated LFTs -start zetia if need Code(s): E78.5 - HYPERLIPIDEMIA, UNSPECIFIED (6) Elevated troponin Assessment/Plan: -Cardiology on board -troponin 4.07, 1.44, 1.19 -Echo EF 15-20% Code(s): R74.8 - ABNORMAL LEVELS OF OTHER SERUM ENZYMES Assessment/Plan see problem list dvt ppx
--- NOTE | 2019-02-05 21:56 | PN ---
Progress Note, Physician Chief Complaint: comfortable no complaint History of Present Illness: 63 Y MALE pmh,dm2,HTN, DM, BLE neuropathy, ESRD on HD (T,,) who presents for evaluation of BLE infection/celluitis/necrosis He has had,R hallux and second toe gangrenous appearance, as well a similar area on the lateral aspect of his right foot. presented for surgical and medical intervention.he has elevated blood sugars since the infection started. - Current Medication List Current Medications: Active Medications Aspirin (Asa -) 81 mg PO DAILY [facility] Last Admin: 02/05/19 11:05 Dose: Not Given Heparin Sodium (Porcine) (Heparin -) 5,000 unit SQ BID [facility] Last Admin: 02/05/19 11:05 Dose: Not Given Piperacillin Sod/Tazobactam (Sod 2.25 gm/ Dextrose) 50 mls @ 100 mls/hr IVPB Q8H-IV [facility]; Protocol Last Admin: 02/05/19 17:50 Dose: Not Given Insulin Aspart (Novolog Vial Sliding Scale -) 1 vial SQ ACHS [facility]; Protocol Last Admin: 02/05/19 17:56 Dose: 4 units Insulin Detemir (Levemir Vial) 10 units SQ HS [facility] Last Admin: 02/04/19 21:07 Dose: 10 units Insulin Detemir (Levemir Vial) 25 units SQ AM [facility] Last Admin: 02/05/19 06:16 Dose: 25 units Metoprolol Succinate (Toprol Xl -) 25 mg PO BID [facility] Last Admin: 02/05/19 11:05 Dose: Not Given Sertraline HCl (Zoloft -) 25 mg PO DAILY [facility] Last Admin: 02/05/19 11:05 Dose: Not Given Valsartan (Diovan -) 80 mg PO DAILY [facility] - Objective Vital Signs: Vital Signs Temperature 98.0 F 02/05/19 18:14 Pulse Rate 85 02/05/19 18:14 Respiratory Rate 20 02/05/19 18:14 Blood Pressure 129/71 02/05/19 18:14 O2 Sat by Pulse Oximetry (%) 97 02/05/19 09:00 Constitutional: Yes: Calm Eyes: Yes: EOM Intact HENT: Yes: Normocephalic Neck: Yes: Trachea Midline Cardiovascular: Yes: Murmur Respiratory: Yes: CTA Bilaterally Gastrointestinal: Yes: Normal Bowel Sounds ...Rectal Exam: Yes: Deferred Breast(s): Yes: WNL Musculoskeletal: Yes: Muscle Weakness Wound/Incision: Yes: Well Approximated Neurological: Yes: Alert, Oriented Labs: CBC, BMP 02/05/19 07:21 02/05/19 10:39 INR, PTT INR 1.67 (0.83-1.09) H 02/01/19 06:15 Problem List - Problems (1) Controlled diabetes mellitus with diabetic peripheral angiopathy without gangrene, without long-term current use of insulin Code(s): E11.51 - TYPE 2 DIABETES W DIABETIC PERIPHERAL ANGIOPATH W/O GANGRENE Qualifiers: Diabetes mellitus type: type 2 Qualified Code(s): E11.51 - Type 2 diabetes mellitus with diabetic peripheral angiopathy without gangrene (2) Cellulitis Code(s): L03.90 - CELLULITIS, UNSPECIFIED Qualifiers: Site of cellulitis: extremity Site of cellulitis of extremity: lower extremity Laterality: unspecified laterality Qualified Code(s): L03.119 - Cellulitis of unspecified part of limb (3) Diabetes Code(s): E11.9 - TYPE 2 DIABETES MELLITUS WITHOUT COMPLICATIONS Qualifiers: Diabetes mellitus type: type 2 (4) ESRD (end stage renal disease) Code(s): N18.6 - END STAGE RENAL DISEASE (5) Elevated LFTs Code(s): R94.5 - ABNORMAL RESULTS OF LIVER FUNCTION STUDIES (6) Elevated troponin Code(s): R74.8 - ABNORMAL LEVELS OF OTHER SERUM ENZYMES (7) Gangrene Code(s): I96 - GANGRENE, NOT ELSEWHERE CLASSIFIED (8) Hyperlipidemia Code(s): E78.5 - HYPERLIPIDEMIA, UNSPECIFIED Assessment/Plan Current Active Problems Cellulitis (Acute) Controlled diabetes mellitus with diabetic peripheral angiopathy without gangrene, without long-term current use of insulin (Acute) Diabetes (Acute) ESRD (end stage renal disease) (Acute) Elevated LFTs (Acute) Elevated troponin (Acute) Gangrene (Acute) Hyperlipidemia (Acute) Necrotic toes (Acute) Abnormal Lab Results 02/05/19 02/05/19 02/05/19 07:21 07:21 10:39 WBC 10.4 H RBC 3.90 L Hgb 10.3 L Hct 32.0 L RDW 19.2 H Chloride 97 L Anion Gap 17 H BUN 70.3 H 20.6 H Creatinine 8.0 H* 2.8 H Random Glucose 181 H Calcium 8.4 L Direct Bilirubin 0.5 H AST 219 H ALT 438 H Alkaline Phosphatase 266 H Total Protein 6.3 L Albumin 2.7 L Laboratory Tests 02/03/19 02/03/19 02/03/19 06:12 10:50 16:58 POC Glucometer 150 210 Random Glucose 181 H 02/03/19 02/04/19 02/04/19 22:25 16:51 20:38 POC Glucometer 329 174 191 Random Glucose 02/05/19 02/05/19 06:15 17:52 POC Glucometer 198 286 Random Glucose plan: bgm achs novolog scale Current Medications Generic Name Dose Route Start Last Admin Trade Name Freq PRN Reason Stop Dose Admin Aspirin 81 mg 02/04/19 14:30 02/05/19 11:05 Asa - PO Not Given DAILY [facility] Heparin Sodium (Porcine) 5,000 unit 01/31/19 22:00 02/05/19 11:05 Heparin - SQ Not Given BID [facility] Piperacillin Sod/Tazobactam 50 mls @ 100 mls/hr 02/01/19 02:00 02/05/19 17:50 Sod 2.25 gm/ Dextrose IVPB Not Given Q8H-IV [facility] Protocol Insulin Aspart 1 vial 01/31/19 16:30 02/05/19 17:56 Novolog Vial Sliding Scale - SQ 4 units ACHS [facility] Administration Protocol Insulin Detemir 10 units 02/04/19 22:00 02/04/19 21:07 Levemir Vial SQ 10 units HS [facility] Administration Insulin Detemir 25 units 02/05/19 07:00 02/05/19 06:16 Levemir Vial SQ 25 units AM [facility] Administration Metoprolol Succinate 25 mg 02/04/19 22:00 02/05/19 11:05 Toprol Xl - PO Not Given BID [facility] Sertraline HCl 25 mg 02/02/19 10:00 02/05/19 11:05 Zoloft - PO Not Given DAILY [facility] Valsartan 80 mg 02/06/19 10:00 Diovan - PO DAILY [facility]
[2019-02-06] MEDS ORDERED: DEXTROSE 5%-WATER - 50 ML IVPB ONE ×4 (01:07→20:39)
[2019-02-06] MEDS ORDERED: PIPERACILLIN/TAZOBACTAM 2.25 GM VIAL IVPB ONE ×4 (01:07→20:39)
[2019-02-06] MEDS: PIPERACILLIN/TAZOB 2.25 GM 2.25 GM in DEXTROSE 5%-WATER - 50 ML IVPB SCH ×3 (01:38→17:28)
[2019-02-06] MEDS: INSULIN SLIDING SCALE (NOVOLOG) 1 VIAL SQ SCH ×4 (06:32→21:39)
[2019-02-06] MEDS: INSULIN (LEVEMIR) 100 UNITS/ML UNITS SQ SCH ×2 (06:32→21:38)
[2019-02-06] MEDS ORDERED: INSULIN (NOVOLOG) ASPART 100 UNITS/ML 10ML VIAL ONE (07:46)
[2019-02-06 08:08] LABS: ALBUMIN 2.5 g/dl (3.4-5.0); BILIRUBIN,DIRECT 0.4 mg/dL (0.0-0.2); BILIRUBIN,TOTAL 0.8 mg/dL (0.2-1); TOT PROT 6.4 g/dl (6.4-8.2)
[2019-02-06] MEDS: VALSARTAN 80 MG TABLET (UD) PO SCH (09:52)
[2019-02-06] MEDS: ASPIRIN 81 MG CHEWABLE TABLETS PO SCH (09:52)
[2019-02-06] MEDS: SERTRALINE HCL 25 MG TABLET (FP) PO SCH ×2 (09:52→09:58)
[2019-02-06] MEDS: metoPROLOL SUCCINATE 25 MG TAB.SR.24H (FP) PO SCH ×2 (09:52→21:40)
[2019-02-06] MEDS: HEPARIN NA (PORCINE) 5,000 UNITS/ML 1ML VIAL SQ SCH ×2 (09:53→21:40)
[2019-02-06 12:05] LABS: HEMATOCRIT 32.1 % (35.4-49); HEMOGLOBIN 9.9 GM/dL (11.7-16.9); MCH 26.1 pg (25.7-33.7); MCHC 30.8 g/dl (32.0-35.9); MEAN CELL VOLUME 84.5 fl (80-96); MEAN PLT VOLUME 10.2 fl (7.5-11.1); PLATELET COUNT 172 K/MM3 (134-434); RDW 19.4 % (11.9-15.9); WHITE BLOOD COUNT 8.7 K/mm3 (4.0-10.0)
--- NOTE | 2019-02-06 12:10 | PN ---
Progress Note, Physician Chief Complaint: Gangrene toes ESRD on HD DM History of Present Illness: Previous notes and events reviewed awake and alert NAD denies complaints of pain or SOB dressing b/l feet with foul smell noted from ulcers - Current Medication List Current Medications: Active Medications Aspirin (Asa -) 81 mg PO DAILY [facility] Last Admin: 02/06/19 09:52 Dose: 81 mg Heparin Sodium (Porcine) (Heparin -) 5,000 unit SQ BID [facility] Last Admin: 02/06/19 09:53 Dose: 5,000 unit Piperacillin Sod/Tazobactam (Sod 2.25 gm/ Dextrose) 50 mls @ 100 mls/hr IVPB Q8H-IV [facility]; Protocol Last Admin: 02/06/19 09:52 Dose: 100 mls/hr Insulin Aspart (Novolog Vial Sliding Scale -) 1 vial SQ ACHS [facility]; Protocol Last Admin: 02/06/19 06:32 Dose: Not Given Insulin Detemir (Levemir Vial) 10 units SQ HS [facility] Last Admin: 02/05/19 22:13 Dose: 10 units Insulin Detemir (Levemir Vial) 25 units SQ AM [facility] Last Admin: 02/06/19 06:32 Dose: 25 units Metoprolol Succinate (Toprol Xl -) 25 mg PO BID [facility] Last Admin: 02/06/19 09:52 Dose: 25 mg Sertraline HCl (Zoloft -) 25 mg PO DAILY [facility] Last Admin: 02/06/19 09:58 Dose: Not Given Valsartan (Diovan -) 80 mg PO DAILY [facility] Last Admin: 02/06/19 09:52 Dose: 80 mg - Objective Vital Signs: Vital Signs Temperature 97.6 F 02/06/19 06:00 Pulse Rate 88 02/06/19 06:00 Respiratory Rate 20 02/06/19 06:00 Blood Pressure 125/76 02/06/19 06:00 O2 Sat by Pulse Oximetry (%) 98 02/05/19 21:00 Constitutional: Yes: No Distress, Calm Eyes: Yes: Conjunctiva Clear HENT: Yes: Atraumatic Cardiovascular: Yes: Regular Rate and Rhythm Respiratory: Yes: Regular, CTA Bilaterally Gastrointestinal: Yes: Normal Bowel Sounds, Soft Musculoskeletal: Yes: WNL Extremities: Yes: WNL Edema: Yes Edema: LLE: Trace Wound/Incision: Yes: Dressing Dry and Intact, Other (foul smelling wounds) Neurological: Yes: Alert, Oriented Psychiatric: Yes: Alert, Oriented Labs: INR, PTT INR 1.67 (0.83-1.09) H 02/01/19 06:15 Microbiology 01/31/19 12:45 Blood - Peripheral Venous Blood Culture - Final NO GROWTH AFTER 5 DAYS INCUBATION 01/31/19 12:45 Blood - Peripheral Venous Blood Culture - Final NO GROWTH AFTER 5 DAYS INCUBATION Problem List - Problems (1) Diabetes Assessment/Plan: -BGM ACHS -Levemir -ISS -HgA1c 9.3% -Endo on board Code(s): E11.9 - TYPE 2 DIABETES MELLITUS WITHOUT COMPLICATIONS Qualifiers: Diabetes mellitus type: type 2 (2) ESRD (end stage renal disease) Assessment/Plan: -Renal on board -continue HD on scheduled days -BUN/Cr 20.6/2.8 Code(s): N18.6 - END STAGE RENAL DISEASE (3) Elevated LFTs Assessment/Plan: -GI on board -AST 81, ALT 324, Alk Phos 258 -Statin d/c, start zetia if need -US shows fatty infiltration of the liver Code(s): R94.5 - ABNORMAL RESULTS OF LIVER FUNCTION STUDIES (4) Gangrene Assessment/Plan: -Vascular, Podiatry on board -CTA with LE runoff shows severe femoropopliteal and infrapopliteal atherosclerotic disease, right more than left, short segmental occlusions throughout femoral-popliteal segments coupled with occluded bilateral ATAs, high grade bilateral TP trunk stenosis, short segmental occlusionsof bilateral MOLDER SWEEP, occluded distal left peroneal artery, occlusion of middle half of left deep femoral artery -ID on board -Zosyn -afebrile -leukocytosis wbc 10.4 -daily dressing changes -as per cardiology consult: he is at high risk cardiac complications for surgical interventios Code(s): I96 - GANGRENE, NOT ELSEWHERE CLASSIFIED (5) Hyperlipidemia Assessment/Plan: -statin d/c due to elevated LFTs -start zetia if need Code(s): E78.5 - HYPERLIPIDEMIA, UNSPECIFIED (6) Elevated troponin Assessment/Plan: -Cardiology on board -troponin 4.07, 1.44, 1.19 -Echo EF 15-20% Code(s): R74.8 - ABNORMAL LEVELS OF OTHER SERUM ENZYMES Assessment/Plan see problem list dvt ppx
[2019-02-06 12:42] LABS: BLOOD UREA NITROGEN 51.8 mg/dL (7-18); CALCIUM 8.6 mg/dL (8.5-10.1); CREATININE 6.1 mg/dL (0.55-1.3); POTASSIUM 3.5 mmol/L (3.5-5.1)
--- NOTE | 2019-02-06 16:21 | PN ---
Progress Note, Physician History of Present Illness: Pt seen and examined at bedside. He is awake and alert. He denies shortness of breath. - Current Medication List Current Medications: Active Medications Aspirin (Asa -) 81 mg PO DAILY [facility] Last Admin: 02/06/19 09:52 Dose: 81 mg Heparin Sodium (Porcine) (Heparin -) 5,000 unit SQ BID [facility] Last Admin: 02/06/19 09:53 Dose: 5,000 unit Piperacillin Sod/Tazobactam (Sod 2.25 gm/ Dextrose) 50 mls @ 100 mls/hr IVPB Q8H-IV [facility]; Protocol Last Admin: 02/06/19 09:52 Dose: 100 mls/hr Insulin Aspart (Novolog Vial Sliding Scale -) 1 vial SQ ACHS [facility]; Protocol Last Admin: 02/06/19 12:21 Dose: Not Given Insulin Detemir (Levemir Vial) 10 units SQ HS [facility] Last Admin: 02/05/19 22:13 Dose: 10 units Insulin Detemir (Levemir Vial) 25 units SQ AM [facility] Last Admin: 02/06/19 06:32 Dose: 25 units Metoprolol Succinate (Toprol Xl -) 25 mg PO BID [facility] Last Admin: 02/06/19 09:52 Dose: 25 mg Sertraline HCl (Zoloft -) 25 mg PO DAILY [facility] Last Admin: 02/06/19 09:58 Dose: Not Given Valsartan (Diovan -) 80 mg PO DAILY [facility] Last Admin: 02/06/19 09:52 Dose: 80 mg - Objective Vital Signs: Vital Signs Temperature 98.4 F 02/06/19 14:00 Pulse Rate 77 02/06/19 14:00 Respiratory Rate 20 02/06/19 14:00 Blood Pressure 126/72 02/06/19 14:00 O2 Sat by Pulse Oximetry (%) 98 02/06/19 09:00 Constitutional: Yes: Calm Eyes: Yes: Conjunctiva Clear HENT: Yes: Atraumatic Neck: Yes: Supple Cardiovascular: Yes: S1, S2 Respiratory: Yes: CTA Bilaterally Gastrointestinal: Yes: Soft Genitourinary: Yes: WNL Musculoskeletal: Yes: WNL Edema: No Wound/Incision: Yes: Dressing Dry and Intact Neurological: Yes: Oriented Psychiatric: Yes: Oriented Labs: CBC, BMP 02/06/19 07:50 02/06/19 06:50 INR, PTT INR 1.67 (0.83-1.09) H 02/01/19 06:15 Problem List - Problems (1) Cellulitis Code(s): L03.90 - CELLULITIS, UNSPECIFIED Qualifiers: Site of cellulitis: extremity Site of cellulitis of extremity: lower extremity Laterality: unspecified laterality Qualified Code(s): L03.119 - Cellulitis of unspecified part of limb (2) Diabetes Code(s): E11.9 - TYPE 2 DIABETES MELLITUS WITHOUT COMPLICATIONS Qualifiers: Diabetes mellitus type: type 2 (3) ESRD (end stage renal disease) Code(s): N18.6 - END STAGE RENAL DISEASE (4) Gangrene Code(s): I96 - GANGRENE, NOT ELSEWHERE CLASSIFIED (5) Hyperlipidemia Code(s): E78.5 - HYPERLIPIDEMIA, UNSPECIFIED Assessment/Plan Current Medications Generic Name Dose Route Start Last Admin Trade Name Freq PRN Reason Stop Dose Admin Aspirin 81 mg 02/04/19 14:30 02/06/19 09:52 Asa - PO 81 mg DAILY [facility] Administration Heparin Sodium (Porcine) 5,000 unit 01/31/19 22:00 02/06/19 09:53 Heparin - SQ 5,000 unit BID [facility] Administration Piperacillin Sod/Tazobactam 50 mls @ 100 mls/hr 02/01/19 02:00 02/06/19 09:52 Sod 2.25 gm/ Dextrose IVPB 100 mls/hr Q8H-IV [facility] Administration Protocol Insulin Aspart 1 vial 01/31/19 16:30 02/06/19 12:21 Novolog Vial Sliding Scale - SQ Not Given ACHS [facility] Protocol Insulin Detemir 10 units 02/04/19 22:00 02/05/19 22:13 Levemir Vial SQ 10 units HS [facility] Administration Insulin Detemir 25 units 02/05/19 07:00 02/06/19 06:32 Levemir Vial SQ 25 units AM [facility] Administration Metoprolol Succinate 25 mg 02/04/19 22:00 02/06/19 09:52 Toprol Xl - PO 25 mg BID [facility] Administration Sertraline HCl 25 mg 02/02/19 10:00 02/06/19 09:58 Zoloft - PO Not Given DAILY [facility] Valsartan 80 mg 02/06/19 10:00 02/06/19 09:52 Diovan - PO 80 mg DAILY [facility] Administration Impression 1. ESRD 2. DM 3. HLD 4. toe gangrene 5. anemia Plan - next HD is on Thursday - cardio follow up - volume status is stable - epogen for anemia - cont wound care - renal diet
[2019-02-07] MEDS: PIPERACILLIN/TAZOB 2.25 GM 2.25 GM in DEXTROSE 5%-WATER - 50 ML IVPB SCH ×3 (01:45→17:41)
[2019-02-07] MEDS: INSULIN (LEVEMIR) 100 UNITS/ML UNITS SQ SCH ×2 (06:18→21:34)
[2019-02-07] MEDS: INSULIN SLIDING SCALE (NOVOLOG) 1 VIAL SQ SCH ×4 (08:22→21:27)
--- NOTE | 2019-02-07 08:22 | PN ---
Progress Note, Physician - Current Medication List Current Medications: Active Medications Aspirin (Asa -) 81 mg PO DAILY [facility] Last Admin: 02/06/19 09:52 Dose: 81 mg Heparin Sodium (Porcine) (Heparin -) 5,000 unit SQ BID [facility] Last Admin: 02/06/19 21:40 Dose: 5,000 unit Piperacillin Sod/Tazobactam (Sod 2.25 gm/ Dextrose) 50 mls @ 100 mls/hr IVPB Q8H-IV [facility]; Protocol Last Admin: 02/07/19 01:45 Dose: 100 mls/hr Insulin Aspart (Novolog Vial Sliding Scale -) 1 vial SQ ACHS [facility]; Protocol Last Admin: 02/07/19 08:22 Dose: Not Given Insulin Detemir (Levemir Vial) 10 units SQ HS [facility] Last Admin: 02/06/19 21:38 Dose: 10 units Insulin Detemir (Levemir Vial) 25 units SQ AM [facility] Last Admin: 02/07/19 06:18 Dose: 25 units Metoprolol Succinate (Toprol Xl -) 25 mg PO BID [facility] Last Admin: 02/06/19 21:40 Dose: 25 mg Sertraline HCl (Zoloft -) 25 mg PO DAILY [facility] Last Admin: 02/06/19 09:58 Dose: Not Given Valsartan (Diovan -) 80 mg PO DAILY [facility] Last Admin: 02/06/19 09:52 Dose: 80 mg - Objective Vital Signs: Vital Signs Temperature 97.4 F L 02/07/19 05:00 Pulse Rate 81 02/07/19 05:00 Respiratory Rate 20 02/07/19 05:00 Blood Pressure 131/71 02/07/19 05:00 O2 Sat by Pulse Oximetry (%) 98 02/06/19 21:00 Labs: CBC, BMP 02/06/19 07:50 02/06/19 06:50 INR, PTT INR 1.67 (0.83-1.09) H 02/01/19 06:15 Problem List - Problems (1) Cellulitis Code(s): L03.90 - CELLULITIS, UNSPECIFIED Qualifiers: Site of cellulitis: extremity Site of cellulitis of extremity: lower extremity Laterality: unspecified laterality Qualified Code(s): L03.119 - Cellulitis of unspecified part of limb (2) Diabetes Code(s): E11.9 - TYPE 2 DIABETES MELLITUS WITHOUT COMPLICATIONS Qualifiers: Diabetes mellitus type: type 2 (3) ESRD (end stage renal disease) Code(s): N18.6 - END STAGE RENAL DISEASE (4) Gangrene Code(s): I96 - GANGRENE, NOT ELSEWHERE CLASSIFIED (5) Hyperlipidemia Code(s): E78.5 - HYPERLIPIDEMIA, UNSPECIFIED (6) Necrotic toes Code(s): I96 - GANGRENE, NOT ELSEWHERE CLASSIFIED
[2019-02-07 08:33] LABS: HEMATOCRIT 34.4 % (35.4-49); HEMOGLOBIN 10.7 GM/dL (11.7-16.9); MCH 26.1 pg (25.7-33.7); MCHC 31.1 g/dl (32.0-35.9); PLATELET COUNT 201 K/MM3 (134-434); RBC 4.09 M/mm3 (4.00-5.60); RDW 19.5 % (11.9-15.9); WHITE BLOOD COUNT 10.3 K/mm3 (4.0-10.0)
[2019-02-07 08:34] LABS: MEAN PLT VOLUME 10.5 fl (7.5-11.1)
[2019-02-07] MEDS ORDERED: DEXTROSE 5%-WATER - 50 ML IVPB ONE ×3 (09:06→20:47)
[2019-02-07] MEDS ORDERED: PIPERACILLIN/TAZOBACTAM 2.25 GM VIAL IVPB ONE ×3 (09:06→20:46)
[2019-02-07 09:16] LABS: ALBUMIN 2.6 g/dl (3.4-5.0); BILIRUBIN,TOTAL 0.8 mg/dL (0.2-1); BLOOD UREA NITROGEN 76.7 mg/dL (7-18); CALCIUM 8.5 mg/dL (8.5-10.1); POTASSIUM 4.3 mmol/L (3.5-5.1); TOT PROT 6.6 g/dl (6.4-8.2)
[2019-02-07] MEDS: metoPROLOL SUCCINATE 25 MG TAB.SR.24H (FP) PO SCH ×2 (10:40→21:34)
[2019-02-07] MEDS: SERTRALINE HCL 25 MG TABLET (FP) PO SCH ×2 (10:40→16:16)
[2019-02-07] MEDS: VALSARTAN 80 MG TABLET (UD) PO SCH (10:41)
[2019-02-07] MEDS: ASPIRIN 81 MG CHEWABLE TABLETS PO SCH (10:41)
[2019-02-07] MEDS: HEPARIN NA (PORCINE) 5,000 UNITS/ML 1ML VIAL SQ SCH (10:41)
[2019-02-07] MEDS ORDERED: INSULIN (NOVOLOG) ASPART 100 UNITS/ML 10ML VIAL ONE (12:44)
--- NOTE | 2019-02-07 12:51 | PN ---
Progress Note, Physician History of Present Illness: AWAKE, ALERT SUPINE IN BED NO C/O FOOT PAIN NO C/O F/C WBC WNL BC (-) ELEVATED LFTS - Current Medication List Current Medications: Active Medications Aspirin (Asa -) 81 mg PO DAILY [facility] Last Admin: 02/07/19 10:41 Dose: 81 mg Heparin Sodium (Porcine) (Heparin -) 5,000 unit SQ BID [facility] Last Admin: 02/07/19 10:41 Dose: 5,000 unit Piperacillin Sod/Tazobactam (Sod 2.25 gm/ Dextrose) 50 mls @ 100 mls/hr IVPB Q8H-IV [facility]; Protocol Last Admin: 02/07/19 10:40 Dose: 100 mls/hr Insulin Aspart (Novolog Vial Sliding Scale -) 1 vial SQ ACHS [facility]; Protocol Last Admin: 02/07/19 08:22 Dose: Not Given Insulin Detemir (Levemir Vial) 10 units SQ HS [facility] Last Admin: 02/06/19 21:38 Dose: 10 units Insulin Detemir (Levemir Vial) 25 units SQ AM [facility] Last Admin: 02/07/19 06:18 Dose: 25 units Metoprolol Succinate (Toprol Xl -) 25 mg PO BID [facility] Last Admin: 02/07/19 10:40 Dose: 25 mg Sertraline HCl (Zoloft -) 25 mg PO DAILY [facility] Last Admin: 02/07/19 10:40 Dose: 25 mg Valsartan (Diovan -) 80 mg PO DAILY [facility] Last Admin: 02/07/19 10:41 Dose: 80 mg - Objective Vital Signs: Vital Signs Temperature 97.4 F L 02/07/19 05:00 Pulse Rate 81 02/07/19 05:00 Respiratory Rate 20 02/07/19 05:00 Blood Pressure 131/71 02/07/19 05:00 O2 Sat by Pulse Oximetry (%) 98 02/06/19 21:00 Constitutional: Yes: No Distress Eyes: Yes: Conjunctiva Clear Cardiovascular: Yes: Regular Rate and Rhythm, S1, S2 Respiratory: Yes: CTA Bilaterally Gastrointestinal: Yes: Normal Bowel Sounds, Soft. No: Tenderness Extremities: Yes: Other (DRY GANGRENE R 1/2 TOES; ERYTHEMA R 3RD TOE; + FOUL ODOR; DRY GANGRENE LATERAL L FOOT; DRY ULCER L HEEL) Labs: CBC, BMP 02/07/19 06:40 02/07/19 06:40 INR, PTT INR 1.67 (0.83-1.09) H 02/01/19 06:15 Assessment/Plan GANGRENE, FEET BILATERALLY CELLULITIC COMPONENT IMPROVED ESRD ELEVATED LFTS SURGICAL FOLLOW UP CONTINUE ZOSYN
[2019-02-07] MEDS ORDERED: SODIUM CHLORIDE 250 ML IV PRN (13:06)
--- NOTE | 2019-02-07 13:06 | PN ---
Progress Note, Physician History of Present Illness: Pt seen and examined at bedside. He has no complaints. - Current Medication List Current Medications: Active Medications Aspirin (Asa -) 81 mg PO DAILY [facility] Last Admin: 02/07/19 10:41 Dose: 81 mg Heparin Sodium (Porcine) (Heparin -) 5,000 unit SQ BID [facility] Last Admin: 02/07/19 10:41 Dose: 5,000 unit Piperacillin Sod/Tazobactam (Sod 2.25 gm/ Dextrose) 50 mls @ 100 mls/hr IVPB Q8H-IV [facility]; Protocol Last Admin: 02/07/19 10:40 Dose: 100 mls/hr Insulin Aspart (Novolog Vial Sliding Scale -) 1 vial SQ ACHS [facility]; Protocol Last Admin: 02/07/19 12:52 Dose: Not Given Insulin Detemir (Levemir Vial) 10 units SQ HS [facility] Last Admin: 02/06/19 21:38 Dose: 10 units Insulin Detemir (Levemir Vial) 25 units SQ AM [facility] Last Admin: 02/07/19 06:18 Dose: 25 units Metoprolol Succinate (Toprol Xl -) 25 mg PO BID [facility] Last Admin: 02/07/19 10:40 Dose: 25 mg Sertraline HCl (Zoloft -) 25 mg PO DAILY [facility] Last Admin: 02/07/19 10:40 Dose: 25 mg Valsartan (Diovan -) 80 mg PO DAILY [facility] Last Admin: 02/07/19 10:41 Dose: 80 mg - Objective Vital Signs: Vital Signs Temperature 97.4 F L 02/07/19 05:00 Pulse Rate 81 02/07/19 05:00 Respiratory Rate 20 02/07/19 05:00 Blood Pressure 131/71 02/07/19 05:00 O2 Sat by Pulse Oximetry (%) 98 02/06/19 21:00 Constitutional: Yes: Calm Eyes: Yes: Conjunctiva Clear HENT: Yes: Atraumatic Neck: Yes: Supple Cardiovascular: Yes: S1, S2 Respiratory: Yes: CTA Bilaterally Gastrointestinal: Yes: Soft Genitourinary: Yes: WNL Edema: Yes Edema: LLE: Trace, RLE: Trace Wound/Incision: Yes: Dressing Dry and Intact Neurological: Yes: Oriented Psychiatric: Yes: Oriented Labs: CBC, BMP 02/07/19 06:40 02/07/19 06:40 INR, PTT INR 1.67 (0.83-1.09) H 02/01/19 06:15 Problem List - Problems (1) Cellulitis Code(s): L03.90 - CELLULITIS, UNSPECIFIED Qualifiers: Site of cellulitis: extremity Site of cellulitis of extremity: lower extremity Laterality: unspecified laterality Qualified Code(s): L03.119 - Cellulitis of unspecified part of limb (2) Diabetes Code(s): E11.9 - TYPE 2 DIABETES MELLITUS WITHOUT COMPLICATIONS Qualifiers: Diabetes mellitus type: type 2 (3) ESRD (end stage renal disease) Code(s): N18.6 - END STAGE RENAL DISEASE (4) Gangrene Code(s): I96 - GANGRENE, NOT ELSEWHERE CLASSIFIED (5) Hyperlipidemia Code(s): E78.5 - HYPERLIPIDEMIA, UNSPECIFIED Assessment/Plan Current Medications Generic Name Dose Route Start Last Admin Trade Name Freq PRN Reason Stop Dose Admin Aspirin 81 mg 02/04/19 14:30 02/07/19 10:41 Asa - PO 81 mg DAILY [facility] Administration Heparin Sodium (Porcine) 5,000 unit 01/31/19 22:00 02/07/19 10:41 Heparin - SQ 5,000 unit BID [facility] Administration Piperacillin Sod/Tazobactam 50 mls @ 100 mls/hr 02/01/19 02:00 02/07/19 10:40 Sod 2.25 gm/ Dextrose IVPB 100 mls/hr Q8H-IV [facility] Administration Protocol Insulin Aspart 1 vial 01/31/19 16:30 02/07/19 12:52 Novolog Vial Sliding Scale - SQ Not Given ACHS [facility] Protocol Insulin Detemir 10 units 02/04/19 22:00 02/06/19 21:38 Levemir Vial SQ 10 units HS [facility] Administration Insulin Detemir 25 units 02/05/19 07:00 02/07/19 06:18 Levemir Vial SQ 25 units AM [facility] Administration Metoprolol Succinate 25 mg 02/04/19 22:00 02/07/19 10:40 Toprol Xl - PO 25 mg BID [facility] Administration Sertraline HCl 25 mg 02/02/19 10:00 02/07/19 10:40 Zoloft - PO 25 mg DAILY [facility] Administration Valsartan 80 mg 02/06/19 10:00 02/07/19 10:41 Diovan - PO 80 mg DAILY [facility] Administration Impression 1. ESRD 2. DM 3. HLD 4. toe gangrene 5. anemia Plan - HD tomorrow - epogen for anemia - cardio follow up - volume status is stable - cont wound care - renal diet
--- NOTE | 2019-02-07 13:53 | PN ---
Progress Note, Physician Chief Complaint: Cardiology FU No dyspnea-no history of chest pain or CAD. History of Present Illness: 63 year-old man with a PMHx of HTN, DM-II, HLD, ESRD on HD admitted 01/31/19 with foot pain and foul order with evidence of LE ischemia and toe/necrosis/ gangrene for one month. The patient noted foot pain and discoloration one month ago. He was seen by Dr. Ragsdale and referred for in-patient care and IV abx. He was seen by Renal, ID, psych, podiatry and vascular. LE angio planned. ECGs show persistent inferolateral ST-T abnormalities, suggestive of myocardial ischemia. Troponin is elevated (4.07). Echocardiogram 02/04/19: Moderate LV dilatation with severe global LV systolic dysfunction. LVEF = 15-20%. Normal RV. Mild LA and RA dilatation. Minimal MR. Moderate TR. - Current Medication List Current Medications: Active Medications Aspirin (Asa -) 81 mg PO DAILY [facility] Last Admin: 02/07/19 10:41 Dose: 81 mg Epoetin Donato (Epogen -) 5,000 unit IVPUSH ONCE ONE Stop: 02/08/19 13:07 Heparin Sodium (Porcine) (Heparin -) 5,000 unit SQ BID [facility] Last Admin: 02/07/19 10:41 Dose: 5,000 unit Piperacillin Sod/Tazobactam (Sod 2.25 gm/ Dextrose) 50 mls @ 100 mls/hr IVPB Q8H-IV [facility]; Protocol Last Admin: 02/07/19 10:40 Dose: 100 mls/hr Sodium Chloride (Normal Saline -) 250 mls @ 3,000 mls/hr IV PRN PRN PRN Reason: Hypotension during Dialysis Stop: 02/08/19 13:06 Insulin Aspart (Novolog Vial Sliding Scale -) 1 vial SQ ACHS [facility]; Protocol Last Admin: 02/07/19 12:52 Dose: Not Given Insulin Detemir (Levemir Vial) 10 units SQ HS [facility] Last Admin: 02/06/19 21:38 Dose: 10 units Insulin Detemir (Levemir Vial) 25 units SQ AM [facility] Last Admin: 02/07/19 06:18 Dose: 25 units Metoprolol Succinate (Toprol Xl -) 25 mg PO BID [facility] Last Admin: 02/07/19 10:40 Dose: 25 mg Sertraline HCl (Zoloft -) 25 mg PO DAILY [facility] Last Admin: 02/07/19 10:40 Dose: 25 mg Valsartan (Diovan -) 80 mg PO DAILY [facility] Last Admin: 02/07/19 10:41 Dose: 80 mg - Objective Vital Signs: Vital Signs Temperature 97.4 F L 02/07/19 05:00 Pulse Rate 81 02/07/19 05:00 Respiratory Rate 20 02/07/19 05:00 Blood Pressure 131/71 02/07/19 05:00 O2 Sat by Pulse Oximetry (%) 98 02/06/19 21:00 Constitutional: Yes: Well Nourished, No Distress Eyes: Yes: Conjunctiva Clear, EOM Intact HENT: Yes: Atraumatic, Normocephalic Neck: Yes: Supple, Trachea Midline Cardiovascular: Yes: Regular Rate and Rhythm, S1, S2. No: JVD Respiratory: Yes: Regular, CTA Bilaterally Gastrointestinal: Yes: Normal Bowel Sounds, Soft Edema: No Labs: CBC, BMP 02/07/19 06:40 02/07/19 06:40 INR, PTT INR 1.67 (0.83-1.09) H 02/01/19 06:15 Problem List - Problems (1) Cardiomyopathy Code(s): I42.9 - CARDIOMYOPATHY, UNSPECIFIED (2) Elevated LFTs Code(s): R94.5 - ABNORMAL RESULTS OF LIVER FUNCTION STUDIES (3) Elevated troponin Code(s): R74.8 - ABNORMAL LEVELS OF OTHER SERUM ENZYMES Assessment/Plan 63 year-old man with a PMHx of HTN, DM-II, HLD, ESRD on HD admitted 01/31/19 with foot pain and foul order with evidence of LE ischemia and toe/necrosis/ gangrene. ECGs show persistent inferolateral ST-T abnormalities, suggestive of myocardial ischemia. Troponin is elevated (4.07). Echocardiogram 02/04/19: Moderate LV dilatation with severe global LV systolic dysfunction. LVEF = 15-20%. Normal RV. Mild LA and RA dilatation. Minimal MR. Moderate TR. 1. Vascular follow up 2) He is at high risk cardiac complications (Revised Cardiac Risk Index (RCRI) 4 predictors = >11%) for surgery. 3. Systolic CHF, likely chronic, possible secondary to ischemic cardiomyopathy. May consider ischemic workup in the future. Raise Toprol XL 50 mg BID Statin on hold given lfts
[2019-02-07] MEDS ORDERED: SERTRALINE HCL 25 MG TABLET (FP) PO SCH (14:51)
[2019-02-07 15:04] VITALS: BMI 26.9
--- NOTE | 2019-02-07 17:42 | DS ---
Physical Examination Vital Signs: Vital Signs Temperature 98.1 F 02/07/19 14:00 Pulse Rate 75 02/07/19 14:00 Respiratory Rate 18 02/07/19 14:00 Blood Pressure 116/58 L 02/07/19 14:00 O2 Sat by Pulse Oximetry (%) 98 02/06/19 21:00 Constitutional: Yes: Mild Distress Eyes: Yes: WNL HENT: Yes: WNL Neck: Yes: WNL Cardiovascular: Yes: Pulse Irregular Respiratory: Yes: WNL Gastrointestinal: Yes: WNL Renal/: Yes: Other Musculoskeletal: Yes: Muscle Weakness Extremities: Yes: Erythema, Other (GANGRENOUS FEET B/L CHRONIC CHANGES TO LEGS) Integumentary: Yes: Erythema, Pressure Ulcer, Rash, Venous Stasis Changes, Other (GANGRENE) Neurological: Yes: Loss of Sensation, Numbness, Weakness ...Motor Strength: LLE, RLE Psychiatric: Yes: Other Labs: CBC, BMP 02/07/19 06:40 02/07/19 06:40 Discharge Summary Reason For Visit: CELLULITIS GANGRENE ENDSTAGE RENAL DISEASE Current Active Problems Cardiomyopathy (Acute) Cellulitis (Acute) Controlled diabetes mellitus with diabetic peripheral angiopathy without gangrene, without long-term current use of insulin (Acute) Diabetes (Acute) ESRD (end stage renal disease) (Acute) Elevated LFTs (Acute) Elevated troponin (Acute) Gangrene (Acute) Hyperlipidemia (Acute) Necrotic toes (Acute) Procedures: Principal: CT ANGIO Hospital Course: PATIENT IS CONSIDERED HIGH RISK FOR ANGIOPLASTY OF LOWER EXTREMITIES, AND WILL NEED TO WORKED UP AT A TERTIARY CENTER FOR POSSIBLE CARDIAC WORKUP BEFORE AND AFTER LOWER EXTREMITY SURGERY Condition: Stable - Instructions Diet, Activity, Other Instructions: RENAL/ADA Disposition: TRANSFER ACUTE CARE/OTHER HOSP - Home Medications Comprehensive Discharge Medication List: Ambulatory Orders Insulin (Levemir) [Levemir Vial] 20 unit SQ HS 01/31/19 Rosuvastatin Calcium [Crestor] 20 mg PO HS 01/31/19 Heparin - 5,000 unit SQ BID vial 02/07/19 Insulin (Levemir) [Levemir Vial] 25 units SQ AM units 02/07/19 Insulin Sliding Scale [Novolog Vial Sliding Scale -] 1 vial SQ ACHS units 02/07 Metoprolol Succinate [Toprol XL -] 25 mg PO BID tab.sr.24h 02/07/19 Piperacillin/Tazob 2.25 gm [Zosyn -] 2.25 gm IVPB Q8H-IV vial 02/07/19 Sertraline HCl [Zoloft -] 12.5 mg PO DAILY tablet 02/07/19 Valsartan [Diovan] 80 mg PO DAILY tablet 02/07/19
[2019-02-07 18:30] VITALS: PULSE 79
[2019-02-07 21:30] VITALS: BP 136/78; TEMP 98.2
[2019-02-08] MEDS ORDERED: EPOETIN ALFA 2,000 UNIT/1 ML VIAL IVPUSH ONE (13:06)
== END 2019-02-07 23:54 | disposition short-term general hospital (02) | DRG 299 ==
LOC: JER 11:35 → JERBED 13:09 → J8W 17:13
PROVIDERS: ADMIT Student in an Organized Health Care Education/Training Program; ATTEND Student in an Organized Health Care Education/Training Program
DX: E11.52 Type 2 diabetes mellitus with diabetic peripheral angiopathy with gangrene (principal); N18.6 End stage renal disease; I96 Gangrene, not elsewhere classified; I42.9 Cardiomyopathy, unspecified; I13.2 Hypertensive heart and chronic kidney disease with heart failure and with stage 5 chronic kidney disease, or end stage renal disease; I50.22 Chronic systolic (congestive) heart failure; E78.5 Hyperlipidemia, unspecified; Z79.4 Long term (current) use of insulin; E11.22 Type 2 diabetes mellitus with diabetic chronic kidney disease; R94.5 Abnormal results of liver function studies; R74.8 Abnormal levels of other serum enzymes; D64.9 Anemia, unspecified; E11.65 Type 2 diabetes mellitus with hyperglycemia
CPT/HCPCS: 36415; 71046-TC-FY; 73610-TC-LT-FY; 73610-TC-RT-FY; 73630-TC-LT; 73630-TC-RT-FY; 75635-TC; 76705-TC; 80048; 80053; 80061; 80076; 82550; 82565; 82962; 83036; 83721; 83735; 83880; 84100; 84443; 84484; 84520; 85025; 85027; 85610; 85651; 85730; 86140; 86803; 87040; 87340; 93005; 93010; 93306-TC; 99284-25; G0480; J0885; J1644

== ENCOUNTER 2019-06-30 18:24 | Emergency (ER) | payer BC, OTHER ==
[2019-06-30 18:58] VITALS: BMI 28.3
[2019-06-30] MEDS ORDERED: ACETAMINOPHEN 325 MG TABLET (FP) PO ONE (20:04)
[2019-06-30] MEDS ORDERED: ACETAMINOPHEN 325 MG TABLET (FP) ONE (20:31)
--- NOTE | 2019-06-30 20:50 | PDOC ---
History of Present Illness - General Chief Complaint: Wound Stated Complaint: FOOT INFECTION Time Seen by Provider: 06/30/19 19:15 History Source: Patient Exam Limitations: No Limitations Past History - Past Medical History Allergies/Adverse Reactions: Allergies Allergy/AdvReac Type Severity Reaction Status Date / Time No Known Allergies Allergy Verified 06/30/19 18:51 Home Medications: Ambulatory Orders Insulin (Levemir) [Levemir Vial] 20 unit SQ HS 01/31/19 Rosuvastatin Calcium [Crestor] 20 mg PO HS 01/31/19 Heparin - 5,000 unit SQ BID vial 02/07/19 Insulin (Levemir) [Levemir Vial] 25 units SQ AM units 02/07/19 Insulin Sliding Scale [Novolog Vial Sliding Scale -] 1 vial SQ ACHS units 02/07 Metoprolol Succinate [Toprol XL -] 25 mg PO BID tab.sr.24h 02/07/19 Piperacillin/Tazob 2.25 gm [Zosyn -] 2.25 gm IVPB Q8H-IV vial 02/07/19 Sertraline HCl [Zoloft -] 12.5 mg PO DAILY tablet 02/07/19 Valsartan [Diovan] 80 mg PO DAILY tablet 02/07/19 COPD: No Diabetes: Yes Dialysis: Yes (T,TH,SAT) HTN: No - Surgical History Abdominal Surgery: (R UPPER ARM GRAFT) - Psycho Social/Smoking Cessation Hx Smoking History: Unknown if ever smoked Have you smoked in the past 12 months: No Hx Alcohol Use: No Drug/Substance Use Hx: No Substance Use Type: Alcohol Hx Substance Use Treatment: No *Physical Exam - Vital Signs Last Vital Signs Temp Pulse Resp BP Pulse Ox 100.9 F H 67 16 108/56 L 95 06/30/19 18:30 06/30/19 18:30 06/30/19 18:30 06/30/19 18:30 06/30/19 18:30 - Physical Exam General Appearance: No: Apparent Distress Respiratory/Chest: positive: Lungs Clear, Normal Breath Sounds. negative: Respiratory Distress Cardiovascular: positive: Regular Rhythm, Regular Rate, S1, S2. negative: Murmur Gastrointestinal/Abdominal: positive: Normal Bowel Sounds, Soft. negative: Tender, Distended, Guarding, Rebound Extremity: positive: Other (B/L feet wrapped in dressing, no obvious drainage noted from site; patient prefers not to have dressing removed) Neurologic: positive: Alert Medical Decision Making - Medical Decision Making 63 y/o M hx of HTN, DM, PVD s/p toe amputations along B/L feet 02/2019 (at [facility]), ESRD on HD (; last dialysis today), CHF, BLE neuropathy was sent from [facility] to ED. Patient has been in rehab since his amputation and stated his insurance is running out today; was advised to come to ED for evaluation to see if he warrants admission to hospital. Patient has been following with vascular surgeon, Dr. Ash Patel, whom he last saw last week. He gets daily dressing changes to his wounds with Santyl. Patient has been having increased pain along feet and patient's sister had discussed with vascular resident at [facility] who stated patient can come to [facility] for evaluation. Patient not aware of fever until he came to ED. Denies URI sxs, sob, cp, abd pain, n/v/d, urinary sxs. Patient was to go to [facility] but erroneously came to [facility] Patient adamant on receiving care at [facility] as that is where his surgery was done and was expecting to see vascular surgeon there Case d/w vascular surgeon, Dr. Kidd, at [facility], who states they will accept patient for transfer Dr. Kidd made aware of fever; states they will do the necessary workup at [facility] and to hold off on labs for now Patient will be accepted to the floor Source of fever possibly coming from foot infection given odor from feet Given Tylenol for now Patient otherwise stable for transfer 06/30/19 20:15 Discharge - Discharge Information Problems reviewed: Yes Clinical Impression/Diagnosis: Peripheral vascular disease Condition: Stable Disposition: TRANSFER ACUTE CARE/OTHER HOSP - Follow up/Referral Referrals: Jeremy Black MD [Primary Care Provider] - - Patient Discharge Instructions - Post Discharge Activity - Transfer to Acute Care Facility Receiving Facility Name: [facility] Accepting Physician:: Dr. Kidd
--- NOTE | 2019-06-30 21:34 | PDOC ---
*Physical Exam - Vital Signs Last Vital Signs Temp Pulse Resp BP Pulse Ox 100.9 F H 67 16 108/56 L 95 06/30/19 18:30 06/30/19 18:30 06/30/19 18:30 06/30/19 18:30 06/30/19 18:30 ED Treatment Course - Medications Given in the ED: ED Medications Discontinued Medications Generic Name Dose Route Start Last Admin Trade Name Freq PRN Reason Stop Dose Admin Acetaminophen 975 mg 06/30/19 20:04 06/30/19 20:20 Tylenol - PO 06/30/19 20:05 975 mg ONCE ONE Administration Medical Decision Making - Medical Decision Making 06/30/19 21:34 Case reviewed, was available for consultation during clinical course Discharge - Discharge Information Problems reviewed: Yes Clinical Impression/Diagnosis: Peripheral vascular disease Condition: Stable Disposition: TRANSFER ACUTE CARE/OTHER HOSP - Follow up/Referral Referrals: Jeremy Black MD [Primary Care Provider] - - Patient Discharge Instructions - Post Discharge Activity
[2019-06-30 22:36] VITALS: BP 114/60; PULSE 74; TEMP 99
== END 2019-06-30 22:36 | disposition short-term general hospital (02) ==
LOC: JER 18:24
DX: I73.9 Peripheral vascular disease, unspecified (principal); I13.2 Hypertensive heart and chronic kidney disease with heart failure and with stage 5 chronic kidney disease, or end stage renal disease; E11.22 Type 2 diabetes mellitus with diabetic chronic kidney disease; N18.6 End stage renal disease; I50.89 Other heart failure; N17.8 Other acute kidney failure; Z99.2 Dependence on renal dialysis; Z79.4 Long term (current) use of insulin; G62.9 Polyneuropathy, unspecified; Z89.422 Acquired absence of other left toe(s); Z89.421 Acquired absence of other right toe(s)
CPT/HCPCS: 99282-25